=== PATIENT | female | born 1995 | race Caucasian/White ===

== ENCOUNTER 2019-09-14 17:30 | Emergency (ER) | payer OTHER ==
--- NOTE | 2019-09-14 17:50 | ERPHSYRPT ---
- History of Present Illness Time Seen by Provider: 09/14/19 17:45 Source: patient Exam Limitations: no limitations Physician History: 23 y/o white female presents with sudden onset of palpitations and rapid heart rate approx 5 minutes after smoking marijuana. never had this rxn before. denies using any other illicit drugs. Timing/Duration: today, hour(s) (1) Severity: mild Modifying Factors: Improves With: nothing Associated Symptoms: nausea, chest pain (pressure), No vomiting, No abdominal pain, No shortness of breath, No syncope Allergies/Adverse Reactions: No Known Drug Allergies Allergy (Unverified 09/14/19 17:43) Home Medications: Norethindrone-E.estradiol-Iron [Junel Fe 1 mg-20 Mcg Tablet] 1 ea PO DAILY 09/14 [History] - Review of Systems Constitutional: No Symptoms Eyes: No Symptoms Ears, Nose, & Throat: No Symptoms Respiratory: No Symptoms Cardiac: Chest Pain (pressure), Palpitations, No Syncope Abdominal/Gastrointestinal: Nausea, No Abdominal Pain, No Vomiting, No Diarrhea Genitourinary Symptoms: No Symptoms Musculoskeletal: No Symptoms Skin: No Symptoms Neurological: No Symptoms Psychological: No Symptoms Endocrine: No Symptoms Hematologic/Lymphatic: No Symptoms Immunological/Allergic: No Symptoms All Other Systems: Reviewed and Negative - Past Medical History Pertinent Past Medical History: Yes Neurological History: No Pertinent History ENT History: No Pertinent History Cardiac History: No Pertinent History Respiratory History: No Pertinent History Endocrine Medical History: No Pertinent History Musculoskeletal History: No Pertinent History GI Medical History: No Pertinent History History: No Pertinent History Psycho-Social History: No Pertinent History Female Reproductive Disorders: No Pertinent History - Past Surgical History Neuro Surgical History: No Pertinent History Cardiac: No Pertinent History Respiratory: No Pertinent History Gastrointestinal: No Pertinent History Genitourinary: No Pertinent History Musculoskeletal: No Pertinent History Female Surgical History: No Pertinent History - Nursing Vital Signs Nursing Vital Signs: Initial Vital Signs Temperature 97.3 F 09/14/19 17:36 Pulse Rate 130 H 09/14/19 17:36 Respiratory Rate 18 09/14/19 17:36 Blood Pressure 127/76 09/14/19 17:36 O2 Sat by Pulse Oximetry 100 09/14/19 17:36 Pain Scale Pain Intensity 0 - Physical Exam General Appearance: mild distress, alert, anxiety Eye Exam: PERRL/EOMI, eyes nml inspection Ears, Nose, Throat Exam: normal ENT inspection, moist mucous membranes Neck Exam: normal inspection, non-tender, supple, full range of motion Respiratory Exam: normal breath sounds, lungs clear, airway intact, No chest tenderness, No respiratory distress Cardiovascular Exam: normal peripheral pulses, tachycardia Gastrointestinal/Abdomen Exam: soft, normal bowel sounds, No tenderness Pelvic Exam: not done Rectal Exam: not done Back Exam: normal inspection, normal range of motion, No CVA tenderness, No vertebral tenderness Extremity Exam: normal inspection, normal range of motion, pelvis stable Neurologic Exam: alert, oriented x 3, cooperative, soft iron inspector II-XII nml as tested Skin Exam: normal color, warm, dry Lymphatic Exam: No adenopathy SpO2 Interpretation: normal O2 Delivery: Room Air - Course Nursing assessment & vital signs reviewed: Yes EKG Interpreted by Me: RATE ([id number]), Sinus Tach, NORMAL AXIS, NORMAL INTERVALS, NORMAL QRS, Non-specific ST Changes, Other (no comparison ekg) Ordered Tests: Active Orders 24 hr Category Date Time Status EKG-ER Only STAT Care 09/14/19 17:56 Active IV Insertion STAT Care 09/14/19 17:56 Active Pulse Oximetry (ED) STAT Care 09/14/19 17:56 Active CHEST WITH CONTRAST [CT] Stat Exams 09/14/19 19:10 Taken BMP Stat Lab 09/14/19 18:10 Completed CBC W DIFF Stat Lab 09/14/19 18:10 Completed D-DIMER QUANTITATION Stat Lab 09/14/19 18:15 Completed HCG,QUALITATIVE URINE Stat Lab 09/14/19 19:18 Completed TROPONIN Q3H Lab 09/14/19 18:00 Completed TROPONIN Q3H Lab 09/15/19 00:00 Ordered TROPONIN Q3H Lab 09/15/19 03:00 Ordered TROPONIN Q3H Lab 09/15/19 06:00 Ordered UA W/RFX UR CULTURE Stat Lab 09/14/19 19:28 Completed Urine Triage Profile Stat Lab 09/14/19 19:28 Completed Medication Summary Discontinued Medications Generic Name Dose Route Start Last Admin Trade Name Freq PRN Reason Stop Dose Admin Sodium Chloride 1,000 mls @ 999 mls/hr 09/14/19 18:55 09/14/19 18:59 Sodium Chloride 0.9% 1000 Ml IV 09/14/19 19:55 999 mls/hr .Q1H1M STA Administration Sodium Chloride Confirm 09/14/19 18:57 Sodium Chloride 0.9% 1000 Ml Administered 09/14/19 18:58 Dose 1,000 mls @ ud .ROUTE .STK-MED ONE Lorazepam 0.5 mg 09/14/19 18:24 09/14/19 18:31 Ativan 2 Mg/1 Ml Vial IV 09/14/19 18:25 0.5 mg STAT ONE Administration Lorazepam Confirm 09/14/19 18:27 Ativan 2 Mg/1 Ml Vial Administered 09/14/19 18:28 Dose 2 mg .ROUTE .STK-MED ONE Lab/Rad Data: Laboratory Result Diagrams 09/14/19 18:10 09/14/19 18:10 Laboratory Results 09/14/19 09/14/19 09/14/19 Range/Units 19:28 19:28 19:18 WBC (4.0-10.5) K/mm3 RBC (4.1-5.4) M/mm3 Hgb (12.0-16.0) gm/dl Hct (35-47) % MCV (78-100) fl MCH (26-32) pg MCHC (32-36) g/dl RDW (11.5-14.0) % Plt Count (150-450) K/mm3 MPV (6-9.5) fl Gran % (36.0-66.0) % Eos # (Auto) (0-0.5) Absolute Lymphs (auto) (1.0-4.6) Absolute Monos (auto) (0.0-1.3) Lymphocytes % (24.0-44.0) % Monocytes % (0.0-12.0) % Eosinophils % (0.00-5.0) % Basophils % (0.0-0.4) % Absolute Granulocytes (1.4-6.9) Basophils # (0-0.4) D-Dimer (215-500) ng/mL Sodium (137-145) mmol/L Potassium (3.5-5.1) mmol/L Chloride (98-107) mmol/L Carbon Dioxide (22-30) mmol/L Anion Gap (5-15) MEQ/L BUN (7-17) mg/dL Creatinine (0.52-1.04) mg/dL Estimated GFR ML/MIN Glucose (74-106) mg/dL Calcium (8.4-10.2) mg/dL Troponin I (0.000-0.034) ng/mL Urine Color YELLOW (YELLOW) Urine Appearance CLEAR (CLEAR) Urine pH 6.0 (5-6) Ur Specific Mcgrath 1.013 (1.005-1.025) Urine Protein NEGATIVE (Negative) Urine Ketones NEGATIVE (NEGATIVE) Urine Blood SMALL (0-5) Mk/ul Urine Nitrite NEGATIVE (NEGATIVE) Urine Bilirubin NEGATIVE (NEGATIVE) Urine Urobilinogen NEGATIVE (0-1) mg/dL Ur Leukocyte Esterase NEGATIVE (NEGATIVE) Urine WBC (Auto) 3-5 (0-5) /HPF Urine RBC (Auto) 0-2 (0-2) /HPF U Epithel Cells (Auto) NONE (FEW) /HPF Urine Bacteria (Auto) NONE SEEN (NEGATIVE) /HPF Urine Mucus (Auto) SLIGHT (NEGATIVE) /HPF Urine Culture Reflexed NO (NO) Urine Glucose NEGATIVE (NEGATIVE) mg/dL Urine HCG, Qual NEGATIVE (Negative) Urine Opiates Level NEGATIVE (NEGATIVE) Ur Methadone NEGATIVE (NEGATIVE) Urine Barbiturates NEGATIVE (NEGATIVE) Ur Phencyclidine (PCP) NEGATIVE (NEGATIVE) Urine Amphetamine NEGATIVE (NEGATIVE) U Benzodiazepine Level NEGATIVE (NEGATIVE) Urine Cocaine NEGATIVE (NEGATIVE) Urine Marijuana (THC) NEGATIVE (NEGATIVE) 09/14/19 09/14/19 09/14/19 Range/Units 18:15 18:10 18:10 WBC 9.8 (4.0-10.5) K/mm3 RBC 4.10 (4.1-5.4) M/mm3 Hgb 12.9 (12.0-16.0) gm/dl Hct 38.0 (35-47) % MCV 92.7 (78-100) fl MCH 31.5 (26-32) pg MCHC 33.9 (32-36) g/dl RDW 12.3 (11.5-14.0) % Plt Count 301 (150-450) K/mm3 MPV 11.7 H (6-9.5) fl Gran % 46.8 (36.0-66.0) % Eos # (Auto) 0.07 (0-0.5) Absolute Lymphs (auto) 4.27 (1.0-4.6) Absolute Monos (auto) 0.84 (0.0-1.3) Lymphocytes % 43.8 (24.0-44.0) % Monocytes % 8.6 (0.0-12.0) % Eosinophils % 0.7 (0.00-5.0) % Basophils % 0.1 (0.0-0.4) % Absolute Granulocytes 4.56 (1.4-6.9) Basophils # 0.01 (0-0.4) D-Dimer 602 H* (215-500) ng/mL Sodium 143 (137-145) mmol/L Potassium 3.9 (3.5-5.1) mmol/L Chloride 108 H (98-107) mmol/L Carbon Dioxide 24 (22-30) mmol/L Anion Gap 15.6 H (5-15) MEQ/L BUN 15 (7-17) mg/dL Creatinine 0.56 (0.52-1.04) mg/dL Estimated GFR > 60.0 ML/MIN Glucose 108 H (74-106) mg/dL Calcium 10.0 (8.4-10.2) mg/dL Troponin I (0.000-0.034) ng/mL Urine Color (YELLOW) Urine Appearance (CLEAR) Urine pH (5-6) Ur Specific Mcgrath (1.005-1.025) Urine Protein (Negative) Urine Ketones (NEGATIVE) Urine Blood (0-5) Mk/ul Urine Nitrite (NEGATIVE) Urine Bilirubin (NEGATIVE) Urine Urobilinogen (0-1) mg/dL Ur Leukocyte Esterase (NEGATIVE) Urine WBC (Auto) (0-5) /HPF Urine RBC (Auto) (0-2) /HPF U Epithel Cells (Auto) (FEW) /HPF Urine Bacteria (Auto) (NEGATIVE) /HPF Urine Mucus (Auto) (NEGATIVE) /HPF Urine Culture Reflexed (NO) Urine Glucose (NEGATIVE) mg/dL Urine HCG, Qual (Negative) Urine Opiates Level (NEGATIVE) Ur Methadone (NEGATIVE) Urine Barbiturates (NEGATIVE) Ur Phencyclidine (PCP) (NEGATIVE) Urine Amphetamine (NEGATIVE) U Benzodiazepine Level (NEGATIVE) Urine Cocaine (NEGATIVE) Urine Marijuana (THC) (NEGATIVE) 09/14/19 Range/Units 18:00 WBC (4.0-10.5) K/mm3 RBC (4.1-5.4) M/mm3 Hgb (12.0-16.0) gm/dl Hct (35-47) % MCV (78-100) fl MCH (26-32) pg MCHC (32-36) g/dl RDW (11.5-14.0) % Plt Count (150-450) K/mm3 MPV (6-9.5) fl Gran % (36.0-66.0) % Eos # (Auto) (0-0.5) Absolute Lymphs (auto) (1.0-4.6) Absolute Monos (auto) (0.0-1.3) Lymphocytes % (24.0-44.0) % Monocytes % (0.0-12.0) % Eosinophils % (0.00-5.0) % Basophils % (0.0-0.4) % Absolute Granulocytes (1.4-6.9) Basophils # (0-0.4) D-Dimer (215-500) ng/mL Sodium (137-145) mmol/L Potassium (3.5-5.1) mmol/L Chloride (98-107) mmol/L Carbon Dioxide (22-30) mmol/L Anion Gap (5-15) MEQ/L BUN (7-17) mg/dL Creatinine (0.52-1.04) mg/dL Estimated GFR ML/MIN Glucose (74-106) mg/dL Calcium (8.4-10.2) mg/dL Troponin I < 0.012 (0.000-0.034) ng/mL Urine Color (YELLOW) Urine Appearance (CLEAR) Urine pH (5-6) Ur Specific Mcgrath (1.005-1.025) Urine Protein (Negative) Urine Ketones (NEGATIVE) Urine Blood (0-5) Mk/ul Urine Nitrite (NEGATIVE) Urine Bilirubin (NEGATIVE) Urine Urobilinogen (0-1) mg/dL Ur Leukocyte Esterase (NEGATIVE) Urine WBC (Auto) (0-5) /HPF Urine RBC (Auto) (0-2) /HPF U Epithel Cells (Auto) (FEW) /HPF Urine Bacteria (Auto) (NEGATIVE) /HPF Urine Mucus (Auto) (NEGATIVE) /HPF Urine Culture Reflexed (NO) Urine Glucose (NEGATIVE) mg/dL Urine HCG, Qual (Negative) Urine Opiates Level (NEGATIVE) Ur Methadone (NEGATIVE) Urine Barbiturates (NEGATIVE) Ur Phencyclidine (PCP) (NEGATIVE) Urine Amphetamine (NEGATIVE) U Benzodiazepine Level (NEGATIVE) Urine Cocaine (NEGATIVE) Urine Marijuana (THC) (NEGATIVE) - Progress Progress: improved Progress Note: 09/14/19 21:12 cta chest-no acute process. no pulm emboli 09/14/19 21:13 pt states she is feeling much better and wants to go home Counseled pt/family regarding: lab results, diagnosis, need for follow-up, rad results - Departure Departure Disposition: Home Clinical Impression: Chest pressure Condition: Stable Critical Care Time: No Referrals: RANDALL HARRELL [Primary Care Provider] - Additional Instructions: drink plenty of fluid. follow up with primary doctor for further management
[2019-09-14] MEDS ORDERED: Ativan 2 MG/1 ML VIAL IV ONE (18:24)
[2019-09-14] MEDS ORDERED: Ativan 2 MG/1 ML VIAL ONE (18:27)
[2019-09-14 18:51] LABS: ANION GAP 15.6 MEQ/L (5-15); BLOOD UREA NITROGEN 15 mg/dL (7-17); CHLORIDE 108 mmol/L (98-107); Carbon Dioxide 24 mmol/L (22-30); Creatinine 1 0.56 mg/dL (0.52-1.04); Glucose 108 mg/dL (74-106); Potassium 3.9 mmol/L (3.5-5.1); SODIUM 143 mmol/L (137-145)
[2019-09-14] MEDS ORDERED: Sodium Chloride 0.9% 1000 ML 1,000 ML IV STA (18:55)
[2019-09-14] MEDS ORDERED: Sodium Chloride 0.9% 1000 ML 1,000 ML ONE (18:57)
[2019-09-14 19:02] LABS: Absolute Neutrophil Ct (ANC) 4.56 (1.4-6.9); BASOPHIL % 0.1 % (0.0-0.4); Basophil (Absolute #) 0.01 (0-0.4); Eosinophil % 0.7 % (0.00-5.0); Eosinophil (Absolute #) 0.07 (0-0.5); Hemoglobin 12.9 gm/dl (12.0-16.0); Lymphocyte (Absolute #) 4.27 (1.0-4.6); Lymphocytes % 43.8 % (24.0-44.0); Mean Cell Volume 92.7 fl (78-100); Mean Corpuscular Hemoglobin 31.5 pg (26-32); Mean Corpuscular Hgb Concent. 33.9 g/dl (32-36); Mean Platelet Volume 11.7 fl (6-9.5); Monocyte (Absolute #) 0.84 (0.0-1.3); Monocytes % 8.6 % (0.0-12.0); Neutrophil % 46.8 % (36.0-66.0); Platelet Count 301 K/mm3 (150-450); Red Cell Distribution Width 12.3 % (11.5-14.0); White Blood Count 9.8 K/mm3 (4.0-10.5)
[2019-09-14 19:31] LABS: Appearance CLEAR (CLEAR); Bilirubin NEGATIVE (NEGATIVE); Blood SMALL Ery/ul (0-5); Glucose NEGATIVE (NEGATIVE); Ketones NEGATIVE (NEGATIVE); Leukocyte Esterase NEGATIVE (NEGATIVE); Mucus SLIGHT /HPF (NEGATIVE); Nitrite NEGATIVE (NEGATIVE); Protein,Urine Dip NEGATIVE (Negative); RBC 0-2 /HPF (0-2); Specific Gravity 1.013 (1.005-1.025); Urobilinogen NEGATIVE mg/dL (0-1)
[2019-09-14 19:32] LABS: Bacteria NONE SEEN /HPF (NEGATIVE)
[2019-09-14 19:44] LABS: Amphetamine,Urine NEGATIVE (NEGATIVE); Barbiturate,Urine NEGATIVE (NEGATIVE); Benzodiazepine,Urine NEGATIVE (NEGATIVE); Cocaine,Urine NEGATIVE (NEGATIVE); Methadone,Urine NEGATIVE (NEGATIVE); Opiate,Urine NEGATIVE (NEGATIVE); PCP,Urine NEGATIVE (NEGATIVE); THC,Urine NEGATIVE (NEGATIVE)
[2019-09-14 21:06] VITALS: BP 106/67; PULSE 97; O2SAT 99
--- NOTE | 2019-09-14 22:25 | XRAY ---
Indication: Chest pain, palpitations, tachycardia. Multiple contiguous axial images obtained through the chest using 80 cc Isovue 370 contrast and PE protocol. Comparison: None There is good opacification of the pulmonary arteries to include the lobar and segmental branches. No filling defect or pulmonary embolus. Heart is not enlarged. Aorta is normal in course and caliber. No pathologic mediastinal/hilar lymphadenopathy. Lungs demonstrates minimal bilateral dependent atelectasis. No suspicious pulmonary mass, infiltrate, or effusion. Bony thorax intact. Limited upper abdomen demonstrates mild fatty liver and previous cholecystectomy. Impression: 1. Negative pulmonary embolus. No acute cardiopulmonary abnormalities. 2. Fatty liver. Comment: Preliminary interpretation was made by [facility]. No critical discrepancy. CTDI 26.49
== END 2019-09-14 21:36 | disposition home or self-care (01) ==
LOC: ED 17:30
DX: R07.89 Other chest pain (principal)
CPT/HCPCS: 36000; 36415; 71260; 80048; 80307; 81001; 84484; 84703; 85025; 85379; 93005; 94760; 96374; 99284; J2060

== ENCOUNTER 2020-08-21 02:16 | Emergency (ER) | payer OTHER ==
--- NOTE | 2020-08-21 02:50 | ERPHSYRPT ---
- History of Present Illness Time Seen by Provider: 08/21/20 02:30 Historian: patient, family Exam Limitations: no limitations Patient Subjective Stated Complaint: pt c/o chest pain off and on x6 days, palpitations tonight Triage Nursing Assessment: pt c/o chest pain to lt upper chest off an on x6 days, having heart palpitations and racing tonight. Pt denies pain radiating to back, neck, jaw or arms. Lungs clear, heart tones reg, abd soft with active bs x4 quad, nontender. Pt denies any n, v, d. Physician History: This is a 24-year-old white female who has had intermittent chest pain on the left side anteriorly without radiation and describes as intermittent sharp pain with associated palpitations for 5 to 6 days. She is never had anything like this before. Patient denies illicit drug use. She denies any change in any caffeine or nicotine intake. She denies shortness of breath. She has no abdominal pain. She is had no nausea vomiting or diarrhea. This morning, patient was having trouble sleeping because of the strong palpitations she was feeling and the pain as described above. She is not under any unusual or different level of stress. Patient denies fever and she denies cough. Timing/Duration: day(s) (5-6) Activities at Onset: none Quality: sharpness, stabbing Location: other (Left anterior chest) Chest Pain Radiation: no radiation Severity of Pain-Max: moderate Severity of Pain-Current: mild Modifying Factors: Improves With: nothing Associated Symptoms: denies symptoms, No nausea, No vomiting, No shortness of breath Prior Chest Pain/Cardiac Workup: no prior chest pain Aspirin Treatment Today: 325 mg x 1, provided by ED Allergies/Adverse Reactions: No Known Drug Allergies Allergy (Verified 08/21/20 02:33) Home Medications: Norethindrone-E.estradiol-Iron [Junel Fe 1 mg-20 Mcg Tablet] 1 ea PO DAILY 09/14/19 [History] Hx Tetanus, Diphtheria Vaccination/Date Given: Yes Hx Influenza Vaccination/Date Given: No Hx Pneumococcal Vaccination/Date Given: No Immunizations Up to Date: Yes Travel Risk - International Travel Have you traveled outside of the country in past 3 weeks: No - Coronavirus Screening Are you exhibiting any of the following symptoms?: No Close contact with a COVID-19 positive Pt in past 14-21 Days: No - Review of Systems Constitutional: No Symptoms Eyes: No Symptoms Ears, Nose, & Throat: No Symptoms Respiratory: No Symptoms Cardiac: Chest Pain Abdominal/Gastrointestinal: No Symptoms Genitourinary Symptoms: No Symptoms Musculoskeletal: No Symptoms Skin: No Symptoms Neurological: No Symptoms Psychological: No Symptoms Endocrine: No Symptoms Hematologic/Lymphatic: No Symptoms Immunological/Allergic: No Symptoms All Other Systems: Reviewed and Negative - Past Medical History Pertinent Past Medical History: Yes Neurological History: No Pertinent History ENT History: No Pertinent History Cardiac History: No Pertinent History Respiratory History: No Pertinent History Endocrine Medical History: No Pertinent History Musculoskeletal History: No Pertinent History GI Medical History: Gallbladder Disease History: No Pertinent History Psycho-Social History: No Pertinent History Female Reproductive Disorders: No Pertinent History - Past Surgical History Past Surgical History: Yes Neuro Surgical History: No Pertinent History Cardiac: No Pertinent History Respiratory: No Pertinent History Gastrointestinal: Cholecystectomy Genitourinary: No Pertinent History Musculoskeletal: No Pertinent History Female Surgical History: No Pertinent History - Social History Smoking Status: Current every day smoker How long have you smoked: 8 yrs Exposure to second hand smoke: Yes Drug Use: none Patient Lives Alone: No - Female History Hx Last Menstrual Period: Jul, 2020 Hx Now: (unknown) - Nursing Vital Signs Nursing Vital Signs: Initial Vital Signs Temperature 98.0 F 08/21/20 02:20 Pulse Rate 82 08/21/20 02:20 Respiratory Rate 18 08/21/20 02:20 Blood Pressure 112/77 08/21/20 02:20 O2 Sat by Pulse Oximetry 100 08/21/20 02:20 Pain Scale Pain Intensity 4 - Physical Exam General Appearance: no apparent distress, alert, anxiety Eye Exam: PERRL/EOMI, eyes nml inspection Ears, Nose, Throat Exam: normal ENT inspection, moist mucous membranes Neck Exam: normal inspection, non-tender, supple, full range of motion Respiratory Exam: normal breath sounds, chest tenderness, lungs clear, airway intact, No respiratory distress Cardiovascular Exam: regular rate/rhythm, normal heart sounds, normal peripheral pulses Gastrointestinal/Abdomen Exam: soft, normal bowel sounds, No tenderness Pelvic Exam: not done Rectal Exam: not done Back Exam: normal inspection, normal range of motion, No CVA tenderness, No vertebral tenderness Extremity Exam: normal inspection, normal range of motion, pelvis stable Neurologic Exam: alert, oriented x 3, cooperative, video game engineer II-XII nml as tested, normal mood/affect, nml cerebellar function, nml station & gait, sensation nml Skin Exam: normal color, warm, dry Lymphatic Exam: No adenopathy SpO2 Interpretation: normal SpO2: 100 O2 Delivery: Room Air - Course Nursing assessment & vital signs reviewed: Yes EKG Interpreted by Me: RATE (76), Sinus Rhythm, NORMAL AXIS, NORMAL INTERVALS, NORMAL QRS, Other (The current EKG is improved when compared to the EKG dated 09/14/2019. There is now resolution of any nonspecific ST segment changes.) Ordered Tests: Active Orders 24 hr Category Date Time Status EKG-ER Only STAT Care 08/21/20 02:52 Active IV Insertion STAT Care 08/21/20 02:52 Active Pulse Oximetry (ED) STAT Care 08/21/20 02:52 Active CBC W DIFF Stat Lab 08/21/20 02:54 Completed CMP Stat Lab 08/21/20 02:54 Completed D-DIMER QUANTITATIVE Stat Lab 08/21/20 02:54 Completed NT PRO BNP Stat Lab 08/21/20 02:54 Completed PROTIME WITH INR Stat Lab 08/21/20 02:54 Completed TROPONIN Q3H Lab 08/21/20 02:54 Completed TROPONIN Q3H Lab 08/21/20 06:00 Ordered TROPONIN Q3H Lab 08/21/20 09:00 Ordered TROPONIN Q3H Lab 08/21/20 12:00 Ordered TROPONIN Q3H Lab 08/21/20 15:00 Ordered Medication Summary Discontinued Medications Generic Name Dose Route Start Last Admin Trade Name Freq PRN Reason Stop Dose Admin Aspirin 324 mg 08/21/20 02:52 08/21/20 02:54 Baby Aspirin 81 Mg Chew PO 08/21/20 02:53 324 mg STAT ONE Administration Lab/Rad Data: Laboratory Result Diagrams 08/21/20 02:54 08/21/20 02:54 Laboratory Results 08/21/20 08/21/20 08/21/20 Range/Units 02:54 02:54 02:54 WBC (4.0-10.5) K/mm3 RBC (4.1-5.4) M/mm3 Hgb (12.0-16.0) gm/dl Hct (35-47) % MCV (78-100) fl MCH (26-32) pg MCHC (32-36) g/dl RDW (11.5-14.0) % Plt Count (150-450) K/mm3 MPV (7.5-11.0) fl Gran % (36.0-66.0) % Eos # (Auto) (0-0.5) Absolute Lymphs (auto) (1.0-4.6) Absolute Monos (auto) (0.0-1.3) Lymphocytes % (24.0-44.0) % Monocytes % (0.0-12.0) % Eosinophils % (0.00-5.0) % Basophils % (0.0-0.4) % Absolute Granulocytes (1.4-6.9) Basophils # (0-0.4) PT 12.6 H (9.95-12.35) SECONDS INR 1.11 (0.8-3.0) D-Dimer 382 (215-500) ng/mL Sodium 136 L (137-145) mmol/L Potassium 4.6 (3.5-5.1) mmol/L Chloride 107 (98-107) mmol/L Carbon Dioxide 21 L (22-30) mmol/L Anion Gap 12.8 (5-15) MEQ/L BUN 14 (7-17) mg/dL Creatinine 0.57 (0.52-1.04) mg/dL Estimated GFR > 60.0 ML/MIN Glucose 100 (74-106) mg/dL Calcium 9.3 (8.4-10.2) mg/dL Total Bilirubin 0.50 (0.2-1.3) mg/dL AST 43 H (14-36) U/L ALT 20 (0-35) U/L Alkaline Phosphatase 51 (38-126) U/L Troponin I < 0.012 (0.000-0.034) ng/mL NT-Pro-B Natriuret Pep 26.7 (0-450) pg/mL Serum Total Protein 7.9 (6.3-8.2) g/dL Albumin 4.5 (3.5-5.0) g/dL 08/21/20 Range/Units 02:54 WBC 11.8 H (4.0-10.5) K/mm3 RBC 4.18 (4.1-5.4) M/mm3 Hgb 13.3 (12.0-16.0) gm/dl Hct 38.3 (35-47) % MCV 91.6 (78-100) fl MCH 31.8 (26-32) pg MCHC 34.7 (32-36) g/dl RDW 12.2 (11.5-14.0) % Plt Count 277 (150-450) K/mm3 MPV 11.7 H (7.5-11.0) fl Gran % 55.7 (36.0-66.0) % Eos # (Auto) 0.10 (0-0.5) Absolute Lymphs (auto) 4.15 (1.0-4.6) Absolute Monos (auto) 0.96 (0.0-1.3) Lymphocytes % 35.2 (24.0-44.0) % Monocytes % 8.1 (0.0-12.0) % Eosinophils % 0.8 (0.00-5.0) % Basophils % 0.2 (0.0-0.4) % Absolute Granulocytes 6.55 (1.4-6.9) Basophils # 0.02 (0-0.4) PT (9.95-12.35) SECONDS INR (0.8-3.0) D-Dimer (215-500) ng/mL Sodium (137-145) mmol/L Potassium (3.5-5.1) mmol/L Chloride (98-107) mmol/L Carbon Dioxide (22-30) mmol/L Anion Gap (5-15) MEQ/L BUN (7-17) mg/dL Creatinine (0.52-1.04) mg/dL Estimated GFR ML/MIN Glucose (74-106) mg/dL Calcium (8.4-10.2) mg/dL Total Bilirubin (0.2-1.3) mg/dL AST (14-36) U/L ALT (0-35) U/L Alkaline Phosphatase (38-126) U/L Troponin I (0.000-0.034) ng/mL NT-Pro-B Natriuret Pep (0-450) pg/mL Serum Total Protein (6.3-8.2) g/dL Albumin (3.5-5.0) g/dL - Progress Progress: improved, re-examined Air Movement: good Blood Culture(s) Obtained: No Antibiotics given: No Counseled pt/family regarding: lab results, diagnosis, need for follow-up - Departure Departure Disposition: Home Clinical Impression: Non-cardiac chest pain Condition: Stable Critical Care Time: No Referrals: RANDALL HARRELL [Primary Care Provider] - Additional Instructions: Follow-up with your primary care provider for further management. Call them today to make arrangements for follow-up appointment.
[2020-08-21] MEDS ORDERED: BABY ASPIRIN 81 MG CHEW PO ONE (02:52)
[2020-08-21 02:59] LABS: INR 1.11 (0.8-3.0); PROTIME 12.6 SECONDS (9.95-12.35)
[2020-08-21 03:12] LABS: ALBUMIN 4.5 g/dL (3.5-5.0); ALKALINE PHOSPHATASE 51 U/L (38-126); ANION GAP 12.8 MEQ/L (5-15); BLOOD UREA NITROGEN 14 mg/dL (7-17); CHLORIDE 107 mmol/L (98-107); Calcium 9.3 mg/dL (8.4-10.2); Carbon Dioxide 21 mmol/L (22-30); Creatinine 1 0.57 mg/dL (0.52-1.04); EST GLOMERULAR FILTRATION RATE > 60.0 ML/MIN; Glucose 100 mg/dL (74-106); NT PRO BNP 26.7 pg/mL (0-450); Potassium 4.6 mmol/L (3.5-5.1); SGOT/AST 43 U/L (14-36); SGPT/ALT 20 U/L (0-35); SODIUM 136 mmol/L (137-145); Total Protein 7.9 g/dL (6.3-8.2)
[2020-08-21 03:17] LABS: Absolute Neutrophil Ct (ANC) 6.55 (1.4-6.9); BASOPHIL % 0.2 % (0.0-0.4); Basophil (Absolute #) 0.02 (0-0.4); Eosinophil % 0.8 % (0.00-5.0); Hematocrit 38.3 % (35-47); Hemoglobin 13.3 gm/dl (12.0-16.0); Lymphocyte (Absolute #) 4.15 (1.0-4.6); Lymphocytes % 35.2 % (24.0-44.0); Mean Cell Volume 91.6 fl (78-100); Mean Corpuscular Hemoglobin 31.8 pg (26-32); Mean Corpuscular Hgb Concent. 34.7 g/dl (32-36); Mean Platelet Volume 11.7 fl (7.5-11.0); Monocyte (Absolute #) 0.96 (0.0-1.3); Monocytes % 8.1 % (0.0-12.0); Neutrophil % 55.7 % (36.0-66.0); Platelet Count 277 K/mm3 (150-450); Red Blood Count 4.18 M/mm3 (4.1-5.4); Red Cell Distribution Width 12.2 % (11.5-14.0); White Blood Count 11.8 K/mm3 (4.0-10.5)
[2020-08-21 03:28] VITALS: BP 99/59; PULSE 82
[2020-08-21 03:39] VITALS: O2SAT 100
== END 2020-08-21 03:52 | disposition home or self-care (01) ==
LOC: ED 02:16
DX: R07.89 Other chest pain (principal)
CPT/HCPCS: 36000; 36415; 80053; 83880; 84484; 85025; 85379; 85610; 93005; 94760; 99284; A9270-GY

== ENCOUNTER 2021-08-17 11:45 | Observation (INO) | payer OTHER ==
--- NOTE | 2021-08-17 12:23 | XRAY ---
Indication: Decreased movements. Ultrasound biophysical profile study performed. There is a single viable intrauterine with heart rate 157 bpm. Four-quadrant JAMARCUS is 15.9 cm, largest pocket 6.9 cm. 2 points given for breathing, movements, tone, and qualitative amniotic fluid volume. Impression: Total biophysical profile score is 8 out of 8.
[2021-08-17 13:04] VITALS: BP 130/82; PULSE 85; O2SAT 97
== END 2021-08-17 13:15 | disposition home or self-care (01) ==
LOC: OB 11:45
PROVIDERS: ADMIT Family Medicine; ATTEND Family Medicine
DX: Z34.03 Encounter for supervision of normal first pregnancy, third trimester (principal); Z3A.33 33 weeks gestation of pregnancy
CPT/HCPCS: 59025; 76819; G0378

== ENCOUNTER 2021-08-27 15:39 | Observation (INO) | payer OTHER ==
[2021-08-27 16:23] VITALS: BP 135/75; PULSE 78; O2SAT 98
[2021-08-27 17:21] LABS: Hematocrit 36.3 % (35-47); Hemoglobin 12.2 gm/dl (12.0-16.0); Mean Cell Volume 92.8 fl (78-100); Mean Corpuscular Hemoglobin 31.2 pg (26-32); Mean Corpuscular Hgb Concent. 33.6 g/dl (32-36); Mean Platelet Volume 10.9 fl (7.5-11.0); Platelet Count 306 K/mm3 (150-450); Red Blood Count 3.91 M/mm3 (4.1-5.4); Red Cell Distribution Width 12.6 % (11.5-14.0); White Blood Count 10.6 K/mm3 (4.0-10.5)
--- NOTE | 2021-08-27 17:24 | XRAY ---
Indication: heart rate deceleration. Ultrasound biophysical profile study performed. Comparison: August 17, 2021. Again single intrauterine with heart rate 141 BPM. Four-quadrant JAMARCUS is 13.2 cm, largest pocket 7.5 cm. 2 points given for breathing, movements, tone, and qualitative amniotic fluid volume. Impression: Total biophysical profile score is again 8 out of 8.
[2021-08-27 18:26] LABS: ALBUMIN 3.9 g/dL (3.5-5.0); ALKALINE PHOSPHATASE 104 U/L (38-126); ANION GAP 12.8 MEQ/L (5-15); BLOOD UREA NITROGEN 10 mg/dL (7-17); CHLORIDE 105 mmol/L (98-107); Calcium 9.6 mg/dL (8.4-10.2); Carbon Dioxide 21 mmol/L (22-30); Creatinine 1 0.51 mg/dL (0.52-1.04); EST GLOMERULAR FILTRATION RATE > 60.0 ML/MIN; Glucose 85 mg/dL (74-106); SGOT/AST 21 U/L (14-36); SGPT/ALT 16 U/L (0-35); SODIUM 135 mmol/L (137-145)
== END 2021-08-27 19:05 | disposition home or self-care (01) ==
LOC: OB 15:39
PROVIDERS: ADMIT Family Medicine; ATTEND Family Medicine
DX: Z34.03 Encounter for supervision of normal first pregnancy, third trimester (principal); Z3A.33 33 weeks gestation of pregnancy
CPT/HCPCS: 36415; 76819; 80053; 85027; G0378

== ENCOUNTER 2021-09-07 11:48 | Observation (INO) | payer OTHER ==
[2021-09-07 12:40] LABS: Absolute Neutrophil Ct (ANC) 6.48 (1.4-6.9); BASOPHIL % 0.1 % (0.0-0.4); Basophil (Absolute #) 0.01 (0-0.4); Eosinophil % 0.4 % (0.00-5.0); Eosinophil (Absolute #) 0.04 (0-0.5); Hematocrit 31.8 % (35-47); Hemoglobin 10.5 gm/dl (12.0-16.0); Lymphocyte (Absolute #) 2.02 (1.0-4.6); Lymphocytes % 22.2 % (24.0-44.0); Mean Cell Volume 91.9 fl (78-100); Mean Corpuscular Hemoglobin 30.3 pg (26-32); Mean Platelet Volume 11.5 fl (7.5-11.0); Monocyte (Absolute #) 0.56 (0.0-1.3); Monocytes % 6.1 % (0.0-12.0); Neutrophil % 71.2 % (36.0-66.0); Platelet Count 269 K/mm3 (150-450); Red Blood Count 3.46 M/mm3 (4.1-5.4); Red Cell Distribution Width 12.7 % (11.5-14.0); White Blood Count 9.1 K/mm3 (4.0-10.5)
[2021-09-07 12:47] LABS: ALKALINE PHOSPHATASE 93 U/L (38-126); BLOOD UREA NITROGEN 8 mg/dL (7-17); CHLORIDE 109 mmol/L (98-107); Calcium 8.8 mg/dL (8.4-10.2); Carbon Dioxide 20 mmol/L (22-30); Creatinine 1 0.48 mg/dL (0.52-1.04); EST GLOMERULAR FILTRATION RATE > 60.0 ML/MIN; Glucose 73 mg/dL (74-106); Potassium 4.2 mmol/L (3.5-5.1); SGOT/AST 20 U/L (14-36); SGPT/ALT 12 U/L (0-35); SODIUM 135 mmol/L (137-145); Total Protein 5.7 g/dL (6.3-8.2)
--- NOTE | 2021-09-07 13:43 | XRAY ---
Indication: well-being due to mother's blood pressure. 2-dimensional OB ultrasound performed. Comparison: August 04, 2021 There is again a single intrauterine in breech presentation. heart rate 137 BPM. anatomy previously documented. Again posterior placenta without abruption/previa. BPD measures 8.90 cm corresponding to 33 weeks 3 days. HC measures 32.06 cm corresponding to 32 weeks 6 days. AC measures 32.64 cm corresponding to 32 weeks 3 days. FL measures 6.95 cm corresponding to 30 weeks 6 days. Estimated weight 6 lbs. 6 oz., +/-15 ounces. Approximately 47 percentile. JAMARCUS is 14.3 cm. Impression: Again single viable intrauterine with mean gestational age 36 weeks 1 day. Normal progression of . No new/acute findings.
== END 2021-09-07 15:33 | disposition home or self-care (01) ==
LOC: OB 11:48
PROVIDERS: ADMIT Family Medicine; ATTEND Family Medicine
DX: Z34.03 Encounter for supervision of normal first pregnancy, third trimester (principal); Z3A.36 36 weeks gestation of pregnancy
CPT/HCPCS: 36415; 76816; 80053; 85025; G0378

== ENCOUNTER 2021-09-12 01:07 | Observation (INO) | payer OTHER ==
[2021-09-12 03:46] LABS: Appearance SLIGHTLY CLOUDY (CLEAR); Bilirubin NEGATIVE (NEGATIVE); Blood SMALL Ery/ul (0-5); Epithelial Cells RARE /HPF (FEW); Glucose NEGATIVE (NEGATIVE); Ketones NEGATIVE (NEGATIVE); Leukocyte Esterase LARGE (NEGATIVE); Mucus SLIGHT /HPF (NEGATIVE); Nitrite NEGATIVE (NEGATIVE); Protein,Urine Dip NEGATIVE (Negative); Specific Gravity 1.018 (1.005-1.025); Urobilinogen NEGATIVE mg/dL (0-1); WBC 51-100 /HPF (0-5)
[2021-09-12 03:51] LABS: Amphetamine,Urine NEGATIVE (NEGATIVE); Barbiturate,Urine NEGATIVE (NEGATIVE); Benzodiazepine,Urine NEGATIVE (NEGATIVE); Cocaine,Urine NEGATIVE (NEGATIVE); Methadone,Urine NEGATIVE (NEGATIVE); Opiate,Urine NEGATIVE (NEGATIVE); PCP,Urine NEGATIVE (NEGATIVE); THC,Urine NEGATIVE (NEGATIVE)
== END 2021-09-12 03:50 | disposition home or self-care (01) ==
LOC: OB 01:07
PROVIDERS: ADMIT Family Medicine; ATTEND Family Medicine
DX: Z34.03 Encounter for supervision of normal first pregnancy, third trimester (principal); Z3A.38 38 weeks gestation of pregnancy
CPT/HCPCS: 80307; 81001; 87086; G0378

== ENCOUNTER 2021-09-12 09:28 | Inpatient (IN) | payer OTHER ==
[2021-09-12] MEDS ORDERED: Reglan 10 MG/2 ML IV SCH (10:30)
[2021-09-12] MEDS ORDERED: SOD CITRATE-CITRIC ACID SOLN PO SCH (10:30)
[2021-09-12] MEDS ORDERED: CEFAZOLIN 2 GM-D5W BAG** 2 GM/50 ML ML IV SCH (10:30)
[2021-09-12] MEDS ORDERED: Pepcid 20 MG VIAL IV SCH (10:30)
[2021-09-12] MEDS: Lactated Ringers 1,000 ML IV SCH ×2 (10:30→20:31)
[2021-09-12] MEDS ORDERED: OMNIPEN 2 GM ONE (10:32)
[2021-09-12] MEDS ORDERED: Sodium Chloride 100ML MINI-BAG PLUS 100 ML IV ONE (10:32)
[2021-09-12 11:04] LABS: Hematocrit 34.3 % (35-47); Hemoglobin 11.6 gm/dl (12.0-16.0); Mean Cell Volume 91.7 fl (78-100); Mean Corpuscular Hgb Concent. 33.8 g/dl (32-36); Mean Platelet Volume 11.4 fl (7.5-11.0); Platelet Count 301 K/mm3 (150-450); Red Blood Count 3.74 M/mm3 (4.1-5.4); Red Cell Distribution Width 12.9 % (11.5-14.0)
[2021-09-12 11:18] LABS: INR 0.95 (0.8-3.0); PROTIME 11.2 SECONDS (9.4-12.5)
[2021-09-12 11:21] LABS: PTT 27.4 SECONDS (25.1-36.5)
[2021-09-12] MEDS ORDERED: Zofran 4 MG/2 ML VIAL ONE (11:30)
[2021-09-12] MEDS ORDERED: Astramorph-Pf 5 MG/10 ML ONE (11:31)
[2021-09-12] MEDS ORDERED: PHENYLEPHRINE HCL ONE (11:44)
[2021-09-12 11:53] LABS: ABO TYPING A; Antibody Screen NEGATIVE (NEGATIVE); RH TYPING POSITIVE
[2021-09-12] MEDS ORDERED: Lactated Ringers 1,000 ML IV ONE ×2 (11:58→13:04)
[2021-09-12] MEDS ORDERED: Pitocin 10 UNITS/ML ONE (12:02)
[2021-09-12] MEDS ORDERED: TORAdol 30 mg Injection ONE (12:07)
[2021-09-12] MEDS ORDERED: Decadron 4 MG INJ ONE ×2 (12:07→12:17)
[2021-09-12] MEDS ORDERED: BENADRYL 50 MG/ML ONE (12:11)
[2021-09-12] MEDS ORDERED: Naropin 0.5% 30 ML VIAL ONE (12:17)
[2021-09-12] MEDS ORDERED: EPINEPHRINE 1MG/ML AMP ONE (12:17)
[2021-09-12] MEDS ORDERED: Zofran 4 MG/2 ML VIAL IV PRN (13:58)
[2021-09-12] MEDS ORDERED: Nubain 10 MG/ML IV PRN (13:58)
[2021-09-12] MEDS ORDERED: CLARITIN 10 MG PO PRN (13:58)
[2021-09-12] MEDS ORDERED: BENADRYL 50 MG/ML IV PRN (13:58)
[2021-09-12] MEDS ORDERED: HOLD NARCOTIC ANALGESICS AND SEDATIVES X24 HR MC PRN (13:58)
[2021-09-12] MEDS ORDERED: PERCOCET TABLET 5/325MG PO PRN (13:58)
[2021-09-12] MEDS ORDERED: Narcan 0.4 MG/ML IV PRN (13:58)
[2021-09-12] MEDS: Dextrose 5%-Lr IV Solution 1000 ML 1,000 ML IV SCH (14:12)
[2021-09-12] MEDS ORDERED: LANSINOH 40 GM TOP PRN (15:14)
[2021-09-12] MEDS ORDERED: Mylicon 80MG PO PRN (15:14)
[2021-09-12] MEDS: PITOCIN 30 UNITS/ LR 500 ML 30 UNITS/500 ML IV.SOLN. IV SCH (15:37)
[2021-09-12] MEDS ORDERED: Adacel Vial IM ONE (18:00)
[2021-09-12] MEDS ORDERED: FERREX 150 PO SCH (18:00)
[2021-09-12] MEDS: Colace 100 MG PO SCH (21:21)
[2021-09-13] MEDS: Dextrose 5%-Lr IV Solution 1000 ML 1,000 ML IV SCH (06:13)
[2021-09-13 06:53] LABS: Absolute Neutrophil Ct (ANC) 15.97 (1.4-6.9); BASOPHIL % 0.1 % (0.0-0.4); Basophil (Absolute #) 0.02 (0-0.4); Eosinophil % 0.1 % (0.00-5.0); Eosinophil (Absolute #) 0.01 (0-0.5); Hematocrit 28.2 % (35-47); Hemoglobin 9.2 gm/dl (12.0-16.0); Lymphocyte (Absolute #) 2.29 (1.0-4.6); Lymphocytes % 11.7 % (24.0-44.0); Mean Cell Volume 94.6 fl (78-100); Mean Corpuscular Hemoglobin 30.9 pg (26-32); Mean Corpuscular Hgb Concent. 32.6 g/dl (32-36); Mean Platelet Volume 11.5 fl (7.5-11.0); Monocytes % 6.2 % (0.0-12.0); Neutrophil % 81.9 % (36.0-66.0); Platelet Count 289 K/mm3 (150-450); Red Blood Count 2.98 M/mm3 (4.1-5.4); White Blood Count 19.5 K/mm3 (4.0-10.5)
[2021-09-13] MEDS: Colace 100 MG PO SCH ×2 (08:10→21:20)
[2021-09-13] MEDS ORDERED: NORCO 5/325 MG PO PRN (09:00)
[2021-09-13] MEDS ORDERED: Zofran 4 MG/2 ML VIAL IV PRN (09:00)
[2021-09-13] MEDS ORDERED: FERREX 150 PO SCH (10:00)
[2021-09-13] MEDS: MOTRIN 400 MG PO PRN ×2 (11:47→21:20)
[2021-09-14] MEDS: Dextrose 5%-Lr IV Solution 1000 ML 1,000 ML IV SCH ×2 (01:24→01:25)
[2021-09-14] MEDS: PITOCIN 30 UNITS/ LR 500 ML 30 UNITS/500 ML IV.SOLN. IV SCH (01:24)
[2021-09-14] MEDS: MOTRIN 400 MG PO PRN (05:19)
[2021-09-14 08:09] LABS: Absolute Neutrophil Ct (ANC) 8.68 (1.4-6.9); BASOPHIL % 0.2 % (0.0-0.4); Basophil (Absolute #) 0.02 (0-0.4); Eosinophil % 0.5 % (0.00-5.0); Eosinophil (Absolute #) 0.06 (0-0.5); Hematocrit 27.3 % (35-47); Hemoglobin 8.8 gm/dl (12.0-16.0); Lymphocyte (Absolute #) 2.66 (1.0-4.6); Lymphocytes % 21.7 % (24.0-44.0); Mean Cell Volume 96.1 fl (78-100); Mean Corpuscular Hgb Concent. 32.2 g/dl (32-36); Mean Platelet Volume 11.1 fl (7.5-11.0); Monocyte (Absolute #) 0.83 (0.0-1.3); Monocytes % 6.8 % (0.0-12.0); Neutrophil % 70.8 % (36.0-66.0); Platelet Count 271 K/mm3 (150-450); Red Blood Count 2.84 M/mm3 (4.1-5.4); Red Cell Distribution Width 13.1 % (11.5-14.0); White Blood Count 12.3 K/mm3 (4.0-10.5)
--- NOTE | 2021-09-14 08:46 | PCM.DS ---
Discharge Summary Date of Admission: 09/12/21 09:28 Admitting Physician: PUMA MCCOY Consults: Consults on Case 09/12/21 10:27 Notify Physician OF ADMISSION 09/12/21 13:58 Notify Anesthesia Provider Q12H 09/12/21 16:33 Navigation Q12H Primary Care Provider: MISHEL SÁNCHEZ KIRAN Allergies Allergies No Known Drug Allergies Allergy (Verified 09/12/21 01:30) Hospital Summary - Hospital Course Hospital Course: patient arrived at 37wks in active labor, breech presentation. had uncomplicated primary on 09/12/21, mild lochia and pain well controlled with ibuprofen . no complications or concerns. - Vitals & Intake/Output Vital Signs: Vital Signs Temperature 98.8 F 09/14/21 02:00 Pulse Rate 90 09/14/21 02:00 Respiratory Rate 18 09/14/21 02:00 Blood Pressure 121/58 09/14/21 02:00 O2 Sat by Pulse Oximetry 97 09/13/21 20:00 Intake & Output: Intake & Output 09/11/21 09/12/21 09/13/21 09/14/21 11:59 11:59 11:59 11:59 Intake Total 400 2206 Output Total 800 Balance 400 1406 Weight 109.316 kg 109.316 kg - Lab Result Diagrams: 09/14/21 07:40 Lab Results-Last 24 Hrs: Lab Results-Last 24 Hours 09/14/21 Range/Units 07:40 WBC 12.3 H (4.0-10.5) K/mm3 RBC 2.84 L (4.1-5.4) M/mm3 Hgb 8.8 L (12.0-16.0) gm/dl Hct 27.3 L (35-47) % MCV 96.1 (78-100) fl MCH 31.0 (26-32) pg MCHC 32.2 (32-36) g/dl RDW 13.1 (11.5-14.0) % Plt Count 271 (150-450) K/mm3 MPV 11.1 H (7.5-11.0) fl Gran % 70.8 H (36.0-66.0) % Eos # (Auto) 0.06 (0-0.5) Absolute Lymphs (auto) 2.66 (1.0-4.6) Absolute Monos (auto) 0.83 (0.0-1.3) Lymphocytes % 21.7 L (24.0-44.0) % Monocytes % 6.8 (0.0-12.0) % Eosinophils % 0.5 (0.00-5.0) % Basophils % 0.2 (0.0-0.4) % Absolute Granulocytes 8.68 H (1.4-6.9) Basophils # 0.02 (0-0.4) - Procedures and Test Procedures and Tests throughout Hospitalization: Therapy Orders & Screens 09/12/21 12:56 Standby ROUTINE Comment: Diagnosis: possible ruptutred membranes Discharge Exam General Appearance: no apparent distress, alert Respiratory Exam: normal breath sounds, lungs clear, No respiratory distress Cardiovascular Exam: regular rate/rhythm, normal heart sounds Gastrointestinal/Abdomen Exam: soft, other (incision c/d/i, well approximated with clara), No tenderness, No mass Extremity Exam: normal inspection, normal range of motion Skin Exam: normal color, warm, dry Final Diagnosis/Problem List - Final Discharge Diagnosis/Problem (1) delivery delivered Current Visit: Yes Status: Acute Code(s): O82 - ENCOUNTER FOR DELIVERY WITHOUT INDICATION - Discharge Disposition: Home, Self-Care Condition: Stable Prescriptions: Continue Vits W-Ca,Fe,FA(<1Mg) [] 1 each PO DAILY Discontinued Famotidine 20 mg [Pepcid 20 MG] 20 mg PO DAILY Ferrous Sulfate 325 mg [Feosol 325 mg] 1 mg PO DAILY Follow up with: MISHEL SÁNCHEZ MD [Primary Care Provider] - 1 Week
--- NOTE | 2021-09-14 12:53 | OP ---
SURGERY DATE/TIME: 09/12/2021 1133 PREOPERATIVE DIAGNOSIS: Prima breech presentation at 37 weeks. POSTOPERATIVE DIAGNOSIS: Prima breech presentation at 37 weeks. PROCEDURE: Primary lower uterine segment transverse incision section. SURGEON: Dr. Owen. ANESTHESIA: Spinal HISTORY: The patient is a 25-year-old white female who presents at 37 weeks in labor. She had gotten to 3 cm on admission and was up to 5 cm by the time Dr. Lion was able to do the evaluation. The baby is in breech presentation by ultrasound. The patient was felt the need to have section delivery in a prima breech presentation. The patient was described the risks of the procedure including the risk of wound infection, possible bleeding requiring transfusion, and possible injury to any intra-abdominal organs particularly the bladder, possible injury to the baby. The patient verbalized her understanding and desired to have the procedure performed. DESCRIPTION OF PROCEDURE: The patient is prepped and draped in the supine position. After spinal anesthesia is given, the area was prepped and draped in sterile fashion. We tested the wound area with sharp pickups. The patient had no sensation of sharpness at the wound. The baby's father was allowed to sit with the mom. A Pfannenstiel incision was made over the abdomen and carried down sharply through the fascia, which was divided in a horizontal fashion. The rectus muscles were then bluntly retracted laterally. The peritoneal cavity is entered. A bladder flap was then developed and the bladder is retracted inferiorly. The uterus is scored in a horizontal fashion, entered in the midline and the wound extended using bandage scissors. The baby delivered through leonardo breech presentation. The cord doubly clamped and divided between the clamps and the baby was handed off for further care. The placenta is then manually removed from the uterus. The uterus exteriorized and wrapped in moist gauze. The wound edges were then re-approximated using 1-0 chromic suture in a running, interlocking fashion. The peritoneal cavity is then repaired using 3-0 chromic suture in running fashion. The fascia was repaired using 0 Vicryl suture in running fashion. The skin edges were re-approximated using clara. The sponge, needle and instrument count were reported as correct at the end of the procedure. The patient did receive antibiotics prior to delivery. Estimated blood loss approximately 300 cc. The patient was taken back to the recovery room in good condition.
[2021-09-15 10:08] LABS: RPR Non Reactive (Non Reactive)
== END 2021-09-14 11:27 | disposition home or self-care (01) | DRG 788 ==
LOC: OB 09:28 → OBSVTOIN 09:28 → MED SURG 09-13 20:40
PROVIDERS: ADMIT Family Medicine; ATTEND Family Medicine
PROC: 10D00Z1 Extraction of Products of Conception, Low, Open Approach (ICD-10-PCS; principal; 2021-09-12)
DX: O64.1XX0 Obstructed labor due to breech presentation, not applicable or unspecified (principal); Z3A.37 37 weeks gestation of pregnancy; Z37.0 Single live birth
CPT/HCPCS: 36415; 64488; 76937; 76942; 84112; 85025; 85027; 85610; 85730; 86592; 86850; 86900; 86901; 94799; G0378; J0171; J0290; J0690; J1100; J1200; J1885; J2274; J2370; J2405; J2590; J2795; L0625; A9270-GY

== ENCOUNTER 2021-11-14 02:39 | Emergency (ER) | payer OTHER ==
[2021-11-14 03:13] VITALS: O2SAT 98
--- NOTE | 2021-11-14 03:17 | ERPHSYRPT ---
- History of Present Illness Time Seen by Provider: 11/14/21 03:17 Source: patient Exam Limitations: no limitations Patient Subjective Stated Complaint: "I have a lot of pressure and ringing in my ears." Triage Nursing Assessment: Patient reported having a positive home covid test on 11/09/21. After which, she developed post-nasal drip, pressure and ringing in her ears. She has used muccinex, ibuprofen, and OTC ear drops without relief of symptoms. She reported that the pressure feeling has only gotten worse which is why she is being seen in the ED. Denied headache, dizziness, odynophagia, N/V/D, chest pain, shortness of breath. Bilateral EACs with mild cerumen and no erythema. Bilateral TMs pearly israel without effusions, erythema, or edema. Oral mucosa pink/moist without ulcerations/lesions. Tonsils without erythema/exudate. Neck supple without lymphadenopathy. Symmetrical chest expansion. Heart tones RRR. Lungs vesicular with adequate airflow. Timing/Duration: gradual onset Severity: moderate ENT Location: ear (R), ear (L) Prearrival Treatment: no prearrival treatment Modifying Factors: Improves With: activity Associated Symptoms: ear pain (R), ear pain (L), cough Allergies/Adverse Reactions: No Known Drug Allergies Allergy (Verified 11/14/21 02:58) Hx Tetanus, Diphtheria Vaccination/Date Given: Yes Hx Influenza Vaccination/Date Given: Yes Hx Pneumococcal Vaccination/Date Given: No Travel Risk - International Travel Have you traveled outside of the country in past 3 weeks: No - Coronavirus Screening Are you exhibiting any of the following symptoms?: No Close contact with a COVID-19 positive Pt in past 14-21 Days: No - Vaccine Status Have you recieved a Covid-19 vaccination: No - Review of Systems Constitutional: No Symptoms, Fatigue Eyes: No Symptoms Ears, Nose, & Throat: No Symptoms, Ear Pain Respiratory: No Symptoms Cardiac: No Symptoms Abdominal/Gastrointestinal: No Symptoms Genitourinary Symptoms: No Symptoms Musculoskeletal: No Symptoms Skin: No Symptoms Neurological: No Symptoms Psychological: No Symptoms Endocrine: No Symptoms Hematologic/Lymphatic: No Symptoms Immunological/Allergic: No Symptoms All Other Systems: Reviewed and Negative (pos. home COVID test a few d ago) - Past Medical History Pertinent Past Medical History: Yes Neurological History: No Pertinent History ENT History: No Pertinent History Cardiac History: No Pertinent History Respiratory History: No Pertinent History Endocrine Medical History: No Pertinent History Musculoskeletal History: No Pertinent History GI Medical History: Gallbladder Disease History: No Pertinent History Psycho-Social History: No Pertinent History Female Reproductive Disorders: No Pertinent History Other Medical History: FX LEFT ARM IN 1ST GRADE, PT STATES FOB BROTHER HAS AUTISM - Past Surgical History Past Surgical History: Yes Neuro Surgical History: No Pertinent History Cardiac: No Pertinent History Respiratory: No Pertinent History Gastrointestinal: Cholecystectomy Genitourinary: No Pertinent History Musculoskeletal: No Pertinent History Female Surgical History: No Pertinent History - Social History Smoking Status: Current every day smoker How long have you smoked: 10 yrs Exposure to second hand smoke: Yes Drug Use: none Patient Lives Alone: No - Female History Hx Now: No - Nursing Vital Signs Nursing Vital Signs: Initial Vital Signs Temperature 98.5 F 11/14/21 02:40 Pulse Rate 75 11/14/21 02:40 Respiratory Rate 18 11/14/21 02:40 Blood Pressure 134/91 11/14/21 02:40 O2 Sat by Pulse Oximetry 98 11/14/21 02:40 Pain Scale Pain Intensity 0 - Physical Exam General Appearance: no apparent distress, alert Eye Exam: bilateral eye: PERRL Ear Exam: bilateral ear: erythema Nasal Exam: normal inspection Throat Exam: normal Neck Exam: normal inspection Cardiovascular/Respiratory Exam: chest non-tender, normal breath sounds Abdominal Exam: non-tender, soft Neurologic Exam: alert, oriented x 3, cooperative Skin Exam: normal color SpO2 Interpretation: normal SpO2: 98 O2 Delivery: Room Air - Course Nursing assessment & vital signs reviewed: Yes Ordered Tests: Medication Summary Discontinued Medications Generic Name Dose Route Start Last Admin Trade Name Kerri PRN Reason Stop Dose Admin Amoxicillin 500 mg 11/14/21 03:25 11/14/21 03:29 Amoxicillin Trihydrate 500 Mg Capsule PO 11/14/21 03:26 500 mg STAT ONE Administration Amoxicillin Confirm 11/14/21 03:28 Amoxicillin Trihydrate 500 Mg Capsule Administered 11/14/21 03:29 Dose 500 mg .ROUTE .STK-MED ONE - Progress Progress: unchanged Progress Note: Mild BOM, Rx amoxil. 11/14/21 06:12 Counseled pt/family regarding: diagnosis - Departure Departure Disposition: Home Clinical Impression: Otitis media Qualifiers: Otitis media type: suppurative Chronicity: acute Laterality: bilateral Recurrence: non-recurrent Spontaneous tympanic membrane rupture: without spont aneous rupture Qualified Code(s): H66.003 - Acute suppurative otitis media without spontaneous rupture of ear drum, bilateral Condition: Stable Critical Care Time: No Referrals: MISHEL SÁNCHEZ MD [Primary Care Provider] - Follow up/PCP as directed Additional Instructions: OTC med as helpful, recheck as needed. Prescriptions: Amoxicillin 500 mg PO TID 7 Days #21 tablet
[2021-11-14] MEDS ORDERED: AMOXIL 500 MG PO ONE (03:25)
[2021-11-14] MEDS ORDERED: AMOXIL 500 MG ONE (03:28)
[2021-11-14 04:06] VITALS: BP 120/81; PULSE 88
== END 2021-11-14 04:05 | disposition home or self-care (01) ==
LOC: ED 02:39
DX: H66.003 Acute suppurative otitis media without spontaneous rupture of ear drum, bilateral (principal); Z72.0 Tobacco use
CPT/HCPCS: 99283; A9270-GY

== ENCOUNTER 2022-02-10 03:46 | Emergency (ER) | payer OTHER ==
[2022-02-10] MEDS ORDERED: BABY ASPIRIN 81 MG CHEW PO ONE (04:15)
[2022-02-10 04:43] LABS: Absolute Neutrophil Ct (ANC) 5.03 (1.4-6.9); Basophil (Absolute #) 0.02 (0-0.4); Eosinophil % 1.1 % (0.00-5.0); Hematocrit 37.5 % (35-47); Hemoglobin 12.8 gm/dl (12.0-16.0); Lymphocyte (Absolute #) 3.66 (1.0-4.6); Lymphocytes % 38.5 % (24.0-44.0); Mean Cell Volume 89.7 fl (78-100); Mean Corpuscular Hemoglobin 30.6 pg (26-32); Mean Corpuscular Hgb Concent. 34.1 g/dl (32-36); Mean Platelet Volume 10.8 fl (7.5-11.0); Monocyte (Absolute #) 0.69 (0.0-1.3); Monocytes % 7.3 % (0.0-12.0); Neutrophil % 52.9 % (36.0-66.0); Platelet Count 354 K/mm3 (150-450); Red Blood Count 4.18 M/mm3 (4.1-5.4); Red Cell Distribution Width 13.8 % (11.5-14.0); White Blood Count 9.5 K/mm3 (4.0-10.5)
[2022-02-10 05:05] LABS: ALBUMIN 4.3 g/dL (3.5-5.0); ALKALINE PHOSPHATASE 77 U/L (38-126); ANION GAP 14.2 MEQ/L (5-15); BLOOD UREA NITROGEN 15 mg/dL (7-17); CHLORIDE 106 mmol/L (98-107); Calcium 9.3 mg/dL (8.4-10.2); Carbon Dioxide 23 mmol/L (22-30); Creatinine 1 0.56 mg/dL (0.52-1.04); EST GLOMERULAR FILTRATION RATE > 60.0 ML/MIN; Glucose 93 mg/dL (74-106); NT PRO BNP 19.4 pg/mL (0-450); Potassium 4.4 mmol/L (3.5-5.1); SGOT/AST 35 U/L (14-36); SGPT/ALT 39 U/L (0-35); SODIUM 138 mmol/L (137-145); Total Protein 7.3 g/dL (6.3-8.2)
[2022-02-10 05:34] VITALS: O2SAT 99
--- NOTE | 2022-02-10 06:09 | ERPHSYRPT ---
- History of Present Illness Time Seen by Provider: 02/10/22 04:15 Historian: patient Exam Limitations: no limitations Patient Subjective Stated Complaint: Patient states she began having chest pain approx 1 hour prior to coming to ED when resting/trying to sleep. She denies SOB or vomiting but does have some mild c/o nausea. States pain radiates from her chest to her left should and down her left arm. Describes chest pain as, "not really a pain but more of a discomfort" and describes the pain in her arm/shoulder as "a tingling sensation." Triage Nursing Assessment: Patient ambulated back to ED without difficulties. She is alert and oriented and answering questions appropriately. No SOB noted. SKin tone normal with a rash noted to BUE that patient states is not new and normal for her. No edema noted. Patient with good capillary refill. BOLANOS WNL without any difficulties. No abnormalities noted in gait during ambulation. Physician History: 26 years old female presented to the ER with chief complaint of chest pain. Patient report having off-and-on chest pain for couple of days and this time it started almost an hour prior to arrival, on the left side with radiation to left arm/shoulder, initially moderate intensity and currently minimal discomfort/pressure. Denies associated palpitations or shortness of breath. No fever chills or cough reported. Does report associated nausea but no vomiting. Timing/Duration: hour(s) (1), constant, sudden, improved Activities at Onset: rest Quality: aching, dullness Chest Pain Radiation: arm Severity of Pain-Max: moderate Severity of Pain-Current: mild Modifying Factors: Improves With: nothing Associated Symptoms: nausea Prior Chest Pain/Cardiac Workup: no prior chest pain, no prior cardiac workup Nitro Today/Relief: no nitro taken today Aspirin Treatment Today: no aspirin today Allergies/Adverse Reactions: No Known Drug Allergies Allergy (Verified 02/10/22 03:47) Home Medications: No Reportable Medications [No Reported Medications] 02/10/22 [History] Hx Tetanus, Diphtheria Vaccination/Date Given: Yes Hx Influenza Vaccination/Date Given: Yes Hx Pneumococcal Vaccination/Date Given: No Immunizations Up to Date: Yes Travel Risk - International Travel Have you traveled outside of the country in past 3 weeks: No - Coronavirus Screening Are you exhibiting any of the following symptoms?: No Close contact with a COVID-19 positive Pt in past 14-21 Days: No - Vaccine Status Have you recieved a Covid-19 vaccination: No - Review of Systems Constitutional: No Symptoms Eyes: No Symptoms Ears, Nose, & Throat: No Symptoms Respiratory: No Symptoms Cardiac: Chest Pain Abdominal/Gastrointestinal: Nausea Genitourinary Symptoms: No Symptoms Musculoskeletal: No Symptoms Skin: No Symptoms Neurological: No Symptoms Psychological: Anxiety Endocrine: No Symptoms Hematologic/Lymphatic: No Symptoms Immunological/Allergic: No Symptoms - Past Medical History Pertinent Past Medical History: Yes Neurological History: No Pertinent History ENT History: No Pertinent History Cardiac History: No Pertinent History Respiratory History: No Pertinent History Endocrine Medical History: No Pertinent History Musculoskeletal History: No Pertinent History GI Medical History: Gallbladder Disease History: No Pertinent History Psycho-Social History: No Pertinent History Female Reproductive Disorders: No Pertinent History Other Medical History: FX LEFT ARM IN 1ST GRADE - Past Surgical History Past Surgical History: Yes Neuro Surgical History: No Pertinent History Cardiac: No Pertinent History Respiratory: No Pertinent History Gastrointestinal: Cholecystectomy Genitourinary: No Pertinent History Musculoskeletal: No Pertinent History Female Surgical History: Section - Social History Smoking Status: Current every day smoker How long have you smoked: 10 yrs Exposure to second hand smoke: Yes Drug Use: none Patient Lives Alone: No - Female History Hx Last Menstrual Period: Unsure; has an IUD Hx Now: (UNKN) - Nursing Vital Signs Nursing Vital Signs: Initial Vital Signs Temperature 97.4 F 02/10/22 03:47 Pulse Rate 74 02/10/22 03:47 Respiratory Rate 13 02/10/22 03:47 Blood Pressure 119/67 02/10/22 03:47 O2 Sat by Pulse Oximetry 99 02/10/22 03:47 Pain Scale Pain Intensity 0 - Physical Exam General Appearance: no apparent distress, alert, anxiety Eye Exam: PERRL/EOMI, eyes nml inspection Ears, Nose, Throat Exam: normal ENT inspection, TMs normal, pharynx normal, moist mucous membranes Neck Exam: normal inspection, supple, full range of motion Respiratory Exam: normal breath sounds, lungs clear Cardiovascular Exam: regular rate/rhythm, normal heart sounds Gastrointestinal/Abdomen Exam: soft, normal bowel sounds, No tenderness Back Exam: normal inspection, normal range of motion Extremity Exam: normal inspection, normal range of motion Neurologic Exam: alert, oriented x 3, cooperative Skin Exam: normal color SpO2 Interpretation: normal SpO2: 99 O2 Delivery: Room Air - Course EKG Interpreted by Me: RATE (82), Sinus Rhythm, NORMAL AXIS, NORMAL INTERVALS, NORMAL QRS Ordered Tests: Active Orders 24 hr Category Date Time Status Business Rules Analyst STAT Care 02/10/22 04:16 Active EKG-ER Only STAT Care 02/10/22 04:15 Active IV Insertion STAT Care 02/10/22 04:15 Active CHEST 1 VIEW (PORTABLE) Stat Exams 02/10/22 04:16 Taken CBC W DIFF Stat Lab 02/10/22 04:15 Completed CMP Stat Lab 02/10/22 04:15 Completed D-DIMER QUANTITATIVE Stat Lab 02/10/22 04:15 Completed HCG,QUALITATIVE URINE Stat Lab 02/10/22 04:16 Completed NT PRO BNP Stat Lab 02/10/22 04:15 Completed TROPONIN Q3H Lab 02/10/22 04:15 Completed TROPONIN Q3H Lab 02/10/22 07:30 Ordered TROPONIN Q3H Lab 02/10/22 10:30 Ordered TROPONIN Q3H Lab 02/10/22 13:30 Ordered TROPONIN Q3H Lab 02/10/22 16:30 Ordered Medication Summary Discontinued Medications Generic Name Dose Route Start Last Admin Trade Name Freq PRN Reason Stop Dose Admin Aspirin 324 mg 02/10/22 04:15 02/10/22 04:26 Aspirin 81 Mg Tab.Chew PO 02/10/22 04:16 324 mg STAT ONE Administration Lab/Rad Data: Laboratory Result Diagrams 02/10/22 04:15 02/10/22 04:15 Laboratory Results 02/10/22 02/10/22 02/10/22 Range/Units 04:16 04:15 04:15 WBC (4.0-10.5) K/mm3 RBC (4.1-5.4) M/mm3 Hgb (12.0-16.0) gm/dl Hct (35-47) % MCV (78-100) fl MCH (26-32) pg MCHC (32-36) g/dl RDW (11.5-14.0) % Plt Count (150-450) K/mm3 MPV (7.5-11.0) fl Gran % (36.0-66.0) % Eos # (Auto) (0-0.5) Absolute Lymphs (auto) (1.0-4.6) Absolute Monos (auto) (0.0-1.3) Lymphocytes % (24.0-44.0) % Monocytes % (0.0-12.0) % Eosinophils % (0.00-5.0) % Basophils % (0.0-0.4) % Absolute Granulocytes (1.4-6.9) Basophils # (0-0.4) D-Dimer 283 (215-500) ng/mL Sodium (137-145) mmol/L Potassium (3.5-5.1) mmol/L Chloride (98-107) mmol/L Carbon Dioxide (22-30) mmol/L Anion Gap (5-15) MEQ/L BUN (7-17) mg/dL Creatinine (0.52-1.04) mg/dL Estimated GFR ML/MIN Glucose (74-106) mg/dL Calcium (8.4-10.2) mg/dL Total Bilirubin (0.2-1.3) mg/dL AST (14-36) U/L ALT (0-35) U/L Alkaline Phosphatase (38-126) U/L Troponin I < 0.012 (0.000-0.034) ng/mL NT-Pro-B Natriuret Pep (0-450) pg/mL Serum Total Protein (6.3-8.2) g/dL Albumin (3.5-5.0) g/dL Urine HCG, Qual NEGATIVE (Negative) 02/10/22 02/10/22 Range/Units 04:15 04:15 WBC 9.5 (4.0-10.5) K/mm3 RBC 4.18 (4.1-5.4) M/mm3 Hgb 12.8 (12.0-16.0) gm/dl Hct 37.5 (35-47) % MCV 89.7 (78-100) fl MCH 30.6 (26-32) pg MCHC 34.1 (32-36) g/dl RDW 13.8 (11.5-14.0) % Plt Count 354 (150-450) K/mm3 MPV 10.8 (7.5-11.0) fl Gran % 52.9 (36.0-66.0) % Eos # (Auto) 0.10 (0-0.5) Absolute Lymphs (auto) 3.66 (1.0-4.6) Absolute Monos (auto) 0.69 (0.0-1.3) Lymphocytes % 38.5 (24.0-44.0) % Monocytes % 7.3 (0.0-12.0) % Eosinophils % 1.1 (0.00-5.0) % Basophils % 0.2 (0.0-0.4) % Absolute Granulocytes 5.03 (1.4-6.9) Basophils # 0.02 (0-0.4) D-Dimer (215-500) ng/mL Sodium 138 (137-145) mmol/L Potassium 4.4 (3.5-5.1) mmol/L Chloride 106 (98-107) mmol/L Carbon Dioxide 23 (22-30) mmol/L Anion Gap 14.2 (5-15) MEQ/L BUN 15 (7-17) mg/dL Creatinine 0.56 (0.52-1.04) mg/dL Estimated GFR > 60.0 ML/MIN Glucose 93 (74-106) mg/dL Calcium 9.3 (8.4-10.2) mg/dL Total Bilirubin 0.50 (0.2-1.3) mg/dL AST 35 (14-36) U/L ALT 39 H (0-35) U/L Alkaline Phosphatase 77 (38-126) U/L Troponin I (0.000-0.034) ng/mL NT-Pro-B Natriuret Pep 19.4 (0-450) pg/mL Serum Total Protein 7.3 (6.3-8.2) g/dL Albumin 4.3 (3.5-5.0) g/dL Urine HCG, Qual (Negative) - Progress Progress: improved Air Movement: good Progress Note: 02/10/22 06:07 26 years old is evaluated for left-sided chest pain. EKG showed normal sinus rhythm. Pain is improving on presentation in the ER. She is given aspirin and does not want any other pain medication. She has a negative troponins D-dimer, chest x-ray some questionable airspace disease on the right lower lobe but patient is maintaining oxygen around 98%. Grossly unremarkable chemistries. Low heart score, do not think she needs further evaluation and is stable to be discharged with outpatient follow-up. Discussed signs symptoms of worsening needing return to ER which she seems understanding. Blood Culture(s) Obtained: No Antibiotics given: No Counseled pt/family regarding: lab results, diagnosis, need for follow-up, rad results, smoking cessation - Departure Departure Disposition: Home Clinical Impression: Atypical chest pain Condition: Stable Critical Care Time: No Referrals: MISHEL SÁNCHEZ MD [Primary Care Provider] - Follow up/PCP as directed (1-2 days for reevaluation) Instructions: Angina (DC), Chest Pain (DC) Additional Instructions: Take Tylenol as needed for pain. Follow-up with primary care for reevaluation. Do not smoke. Return to ER for worsening chest pain or if develop palpitation/shortness of breath etc.
[2022-02-10 06:16] VITALS: BP 119/66; PULSE 74
--- NOTE | 2022-02-10 09:17 | XRAY ---
Indication: Chest pain. Comparison: None Portable chest demonstrates normal heart and lungs. Bony thorax intact with minimal scoliosis.
== END 2022-02-10 06:25 | disposition home or self-care (01) ==
LOC: ED 03:46
DX: R07.89 Other chest pain (principal); R11.0 Nausea; Z72.0 Tobacco use
CPT/HCPCS: 36000; 36415; 71045; 80053; 83880; 84484; 84703; 85025; 85379; 93005; 93041; 99284; A9270-GY

== ENCOUNTER 2025-05-24 09:59 | Emergency (ER) | payer OTHER ==
--- NOTE | 2025-05-24 10:08 | ERPHSYRPT ---
- History of Present Illness Time Seen by Provider: 05/24/25 10:07 Source: patient, family Exam Limitations: no limitations Physician History: This is an overweight 29-year-old white female patient arrives by private vehicle from the urgent care center where they took a history from her because of her symptoms of right facial numbness and numbness of her right side of her tongue, she was sent to our emergency department for evaluation. Patient's primary care provider is Dr. Sánchez. Symptoms began approximately 3 hours prior to arrival. She noticed them when she was awake. They have improved but still present. She has never had this type of symptom pattern before. She denies head injury. She denies new medications. She has not had flulike symptoms. She has no pain anywhere. There has not been any nausea vomiting or diarrhea symptoms. She has had no visual changes. Timing/Duration: today Severity: mild Character of Deficits: none (No deficits but she has the right side facial numbness) Deficits: no difficulties Baseline/Normal Cognition: alert oriented x 3 Current Cognition: alert oriented x 3 Baseline Gait: walks w/o assistance Associated Symptoms: denies symptoms Allergies/Adverse Reactions: No Known Drug Allergies Allergy (Verified 04/08/25 17:38) Hx Tetanus, Diphtheria Vaccination/Date Given: No Hx Influenza Vaccination/Date Given: No Hx Pneumococcal Vaccination/Date Given: No Travel Risk - International Travel Have you traveled outside of the country in past 3 weeks: No - Emerging Infectious Disease Are you exhibiting symptoms associated with any current EIDs: No - Review of Systems Constitutional: No Symptoms Eyes: No Symptoms Ears, Nose, & Throat: No Symptoms Respiratory: No Symptoms Cardiac: No Symptoms Abdominal/Gastrointestinal: No Symptoms Genitourinary Symptoms: No Symptoms Musculoskeletal: No Symptoms Skin: No Symptoms Neurological: Other (Right side facial numbness, right side lingual numbness) Psychological: No Symptoms Endocrine: No Symptoms Hematologic/Lymphatic: No Symptoms Immunological/Allergic: No Symptoms All Other Systems: Reviewed and Negative - Past Medical History Pertinent Past Medical History: Yes Neurological History: No Pertinent History ENT History: No Pertinent History Cardiac History: No Pertinent History Respiratory History: No Pertinent History Endocrine Medical History: No Pertinent History Musculoskeletal History: No Pertinent History History: No Pertinent History Psycho-Social History: No Pertinent History Female Reproductive Disorders: No Pertinent History Other Medical History: FX LEFT ARM IN 1ST GRADE - Past Surgical History Past Surgical History: Yes Neuro Surgical History: No Pertinent History Cardiac: No Pertinent History Respiratory: No Pertinent History Gastrointestinal: Cholecystectomy Genitourinary: No Pertinent History Musculoskeletal: No Pertinent History Female Surgical History: Section - Female History Hx Last Menstrual Period: IRREGULAR - Social History Smoking Status: Current every day smoker How long have you smoked: 10 yrs Exposure to second hand smoke: Yes Drug Use: none - Social Determinants of Health Will the patient participate in the screening: Declined to provide - Nursing Vital Signs Nursing Vital Signs: Initial Vital Signs Temperature 97 F 05/24/25 10:00 Pulse Rate 68 05/24/25 10:00 Respiratory Rate 18 05/24/25 10:00 Blood Pressure 125/91 05/24/25 10:00 O2 Sat by Pulse Oximetry 98 05/24/25 10:00 Pain Scale Pain Intensity 0 - [place] Coma Scale Best Eye Response (Mary): (4) open spontaneously Best Verbal Response (Mary): (5) oriented Best Motor Response (Mary): (6) obeys commands [place] Total: 15 - Physical Exam General Appearance: no apparent distress, alert, anxiety Eye Exam: bilateral eye: normal inspection, PERRL, EOMI Ears, Nose, Throat Exam: normal ENT inspection, moist mucous membranes Neck Exam: normal inspection, non-tender, supple, full range of motion Respiratory: normal breath sounds, lungs clear, airway intact, No chest tenderness, No respiratory distress Cardiovascular: regular rate/rhythm, normal heart sounds, normal peripheral pulses Gastrointestinal: soft, normal bowel sounds, No tenderness Pelvic Exam: not done Rectal Exam: not done Back Exam: normal inspection, normal range of motion, No CVA tenderness, No vertebral tenderness Extremity Exam: normal inspection, normal range of motion, pelvis stable Mental Status: alert, oriented x 3, cooperative dumper operator Exam: normal hearing, normal speech, PERRL, facial paresthesias (Numbness right side of her face), tongue midline, No abnormal speech, No facial droop, No gaze palsy Coordination/Gait: normal gait, normal cerebellar function Motor/Sensory: no motor deficit, no sensory deficit Skin Exam: normal color, warm, dry SpO2 Interpretation: normal O2 Delivery: Room Air - Course Nursing assessment & vital signs reviewed: Yes Ordered Tests: Active Orders 24 hr Category Date Time Status IV Insertion STAT Care 05/24/25 10:08 Active NPO (ED) STAT Care 05/24/25 10:08 Active HEAD WITHOUT CONTRAST [CT] Stat Exams 05/24/25 10:08 Completed CBC W DIFF Stat Lab 05/24/25 10:08 Completed CMP Stat Lab 05/24/25 10:40 Completed CULTURE,URINE Stat Lab 05/24/25 11:39 Received HCG QUALITATIVE, SERUM Stat Lab 05/24/25 10:40 Completed UA W/RFX UR CULTURE Stat Lab 05/24/25 11:39 Completed Lab/Rad Data: Laboratory Result Diagrams 05/24/25 10:08 05/24/25 10:40 Laboratory Results 05/24/25 05/24/25 05/24/25 Range/Units 11:39 10:40 10:40 WBC (3.98-10.04) x10^3/uL RBC (3.93-5.22) x10^6/uL Hgb (11.2-15.7) g/dL Hct (34.1-44.9) % MCV (79.4-94.8) fL MCH (25.6-32.2) pg MCHC (32.2-35.5) g/dL RDW (11.7-14.4) % Plt Count (182-369) x10^3/uL MPV (9.4-12.3) fL Gran % (34.0-71.1) % Immature Gran % (Auto) (0.001-0.429) % Nucleat RBC Rel Count (0.00-0.2) % Eos # (Auto) (0.04-0.36) x10^3/uL Immature Gran # (Auto) (0.001-0.031) x10^3u/L Absolute Lymphs (auto) (1.18-3.74) x10^3/uL Absolute Monos (auto) (0.24-0.86) x10^3/uL Absolute Nucleated RBC (0.00-0.012) x10^3u/L Lymphocytes % (19.3-51.7) % Monocytes % (4.7-12.5) % Eosinophils % (0.7-5.8) % Basophils % (0.1-1.2) % Absolute Granulocytes (1.56-6.13) x10^3/uL Basophils # (0.01-0.08) x10^3/uL Sodium 140 (135-145) mmol/L Potassium 4.3 (3.5-5.1) mmol/L Chloride 105 (98-107) mmol/L Carbon Dioxide 26 (22-30) mmol/L Anion Gap 13.6 (5-15) MEQ/L BUN 11 (7-17) mg/dL Creatinine 0.71 (0.52-1.04) mg/dL Estimated GFR 118.0 ML/MIN Glucose 101 (74-106) mg/dL Calcium 9.9 (8.4-10.2) mg/dL Total Bilirubin 0.50 (0.2-1.3) mg/dL AST 27 (14-36) U/L ALT 28 (0-35) U/L Alkaline Phosphatase 68 (38-126) U/L Serum Total Protein 8.1 (6.3-8.2) g/dL Albumin 4.5 (3.5-5.0) g/dL Serum HCG, Qual NEGATIVE (NEGATIVE) Urine Color Yellow (Yellow) Urine Appearance Turbid A (Clear) Urine pH 7.5 (4.6-8.0) Ur Specific [place] 1.020 (1.005-1.030) Urine Protein Negative (Negative) Urine Glucose (UA) Negative (Negative) mg/dL Urine Ketones Negative (Negative) Urine Blood Negative (Negative) Urine Nitrite Negative (Negative) Urine Bilirubin Negative (Negative) Urine Urobilinogen 0.2 (0.2) mg/dL Ur Leukocyte Esterase Small A (Negative) U Hyaline Cast (Auto) NONE SEEN (0-2) /LPF Urine Microscopic RBC 0-2 (0-5) /HPF Urine Microscopic WBC 11-20 A (0-5) /HPF Ur Epithelial Cells Few (None Seen) /HPF Urine Bacteria Moderate A (None Seen) /HPF Urine Culture Reflexed YES (NO) 05/24/25 Range/Units 10:08 WBC 6.4 (3.98-10.04) x10^3/uL RBC 4.43 (3.93-5.22) x10^6/uL Hgb 13.9 (11.2-15.7) g/dL Hct 39.9 (34.1-44.9) % MCV 90.1 (79.4-94.8) fL MCH 31.4 (25.6-32.2) pg MCHC 34.8 (32.2-35.5) g/dL RDW 11.9 (11.7-14.4) % Plt Count 330 (182-369) x10^3/uL MPV 10.1 (9.4-12.3) fL Gran % 60.1 (34.0-71.1) % Immature Gran % (Auto) 0.3 (0.001-0.429) % Nucleat RBC Rel Count 0.0 (0.00-0.2) % Eos # (Auto) 0.03 L (0.04-0.36) x10^3/uL Immature Gran # (Auto) 0.02 (0.001-0.031) x10^3u/L Absolute Lymphs (auto) 2.04 (1.18-3.74) x10^3/uL Absolute Monos (auto) 0.45 (0.24-0.86) x10^3/uL Absolute Nucleated RBC 0.00 (0.00-0.012) x10^3u/L Lymphocytes % 31.8 (19.3-51.7) % Monocytes % 7.0 (4.7-12.5) % Eosinophils % 0.5 L (0.7-5.8) % Basophils % 0.3 (0.1-1.2) % Absolute Granulocytes 3.85 (1.56-6.13) x10^3/uL Basophils # 0.02 (0.01-0.08) x10^3/uL Sodium (135-145) mmol/L Potassium (3.5-5.1) mmol/L Chloride (98-107) mmol/L Carbon Dioxide (22-30) mmol/L Anion Gap (5-15) MEQ/L BUN (7-17) mg/dL Creatinine (0.52-1.04) mg/dL Estimated GFR ML/MIN Glucose (74-106) mg/dL Calcium (8.4-10.2) mg/dL Total Bilirubin (0.2-1.3) mg/dL AST (14-36) U/L ALT (0-35) U/L Alkaline Phosphatase (38-126) U/L Serum Total Protein (6.3-8.2) g/dL Albumin (3.5-5.0) g/dL Serum HCG, Qual (NEGATIVE) Urine Color (Yellow) Urine Appearance (Clear) Urine pH (4.6-8.0) Ur Specific [place] (1.005-1.030) Urine Protein (Negative) Urine Glucose (UA) (Negative) mg/dL Urine Ketones (Negative) Urine Blood (Negative) Urine Nitrite (Negative) Urine Bilirubin (Negative) Urine Urobilinogen (0.2) mg/dL Ur Leukocyte Esterase (Negative) U Hyaline Cast (Auto) (0-2) /LPF Urine Microscopic RBC (0-5) /HPF Urine Microscopic WBC (0-5) /HPF Ur Epithelial Cells (None Seen) /HPF Urine Bacteria (None Seen) /HPF Urine Culture Reflexed (NO) - Progress Progress: improved Progress Note: 05/24/25 10:57 My medical decision making and the assignment of moderate complexity of this patient's medical issue today is based on review of the patient's past medical history, review of the patient's medication list, review of the patient drug allergy list, history present illness and physical findings on examination. The workup in this patient includes placement of a intravenous line, twelve-lead EKG, urinalysis, test, CBC, CMP, magnesium level, CT scan of the head without contrast. Differential diagnosis includes but is not limited to acute intracranial abnormality, electrolyte abnormalities, anxiety about health, arrhythmia, dehydration, urinary tract infection 05/24/25 12:06 I interpreted the patient's laboratory data results. Based on the laboratory data results the patient does have a mild urinary tract infection. There are no other acute, emergent findings in her lab work results. Counseled pt/family regarding: lab results, diagnosis, need for follow-up, rad results Medical Desision Making - Diagnostic Testing Diagnostic test were ordered, analyzed, and reviewed by me: Yes Radiological Interpretation: Reviewed by me, Teleradiologist Report - Risk of complications The pt has a mod risk of morbidity or mortality based on: Need for prescription drug management - Departure Departure Disposition: Home Clinical Impression: Right facial numbness, UTI (urinary tract infection) Condition: Stable Critical Care Time: No Referrals: MISHEL SÁNCHEZ MD [Primary Care Provider, [facility]] - Follow up/PCP as directed Additional Instructions: Drink plenty of fluids. Take your antibiotics as prescribed. Call your primary care provider today, 05/24/2025, to make arranges for follow-up appointment for further evaluation and management. Prescriptions: Cephalexin Mh 500 mg [Keflex 500 mg] 500 mg PO TID #21 cap
[2025-05-24 10:31] VITALS: RESP 18; TEMP 97
[2025-05-24 10:48] LABS: BASOPHIL % 0.3 % (0.1-1.2); Basophil (Absolute #) 0.02 x10^3/uL (0.01-0.08); Eosinophil (Absolute #) 0.03 x10^3/uL (0.04-0.36); Hematocrit 39.9 % (34.1-44.9); Hemoglobin 13.9 g/dL (11.2-15.7); IMMATURE GRAN # 0.02 x10^3u/L (0.001-0.031); IMMATURE GRAN % 0.3 % (0.001-0.429); Lymphocyte (Absolute #) 2.04 x10^3/uL (1.18-3.74); Mean Corpuscular Hemoglobin 31.4 pg (25.6-32.2); Mean Corpuscular Hgb Concent. 34.8 g/dL (32.2-35.5); Monocyte (Absolute #) 0.45 x10^3/uL (0.24-0.86); NUCLEATED RBC # 0.00 x10^3u/L (0.00-0.012); NUCLEATED RBC % 0.0 % (0.00-0.2); Platelet Count 330 x10^3/uL (182-369); Red Blood Count 4.43 x10^6/uL (3.93-5.22); White Blood Count 6.4 x10^3/uL (3.98-10.04)
[2025-05-24 11:00] LABS: HCG SERUM TEST NEGATIVE (NEGATIVE)
[2025-05-24 11:03] LABS: Calcium 9.9 mg/dL (8.4-10.2); Carbon Dioxide 26.0 mmol/L (22-30); Creatinine 1 0.71 mg/dL (0.52-1.04); EST GLOMERULAR FILTRATION RATE 118.0 ML/MIN; Glucose 101.0 mg/dL (74-106); Potassium 4.3 mmol/L (3.5-5.1); SGOT/AST 27.0 U/L (14-36); SGPT/ALT 28.0 U/L (0-35); Total Protein 8.1 g/dL (6.3-8.2)
[2025-05-24 11:07] VITALS: PULSE 82; O2SAT 98
[2025-05-24 11:47] LABS: Glucose, Urine Negative (Negative); Protein,Urine Dip Negative (Negative); RBC 0-2 /HPF (0-5)
--- NOTE | 2025-05-24 11:55 | XRAY ---
Indication: Facial numbness. Multiple contiguous axial images obtained through the head without contrast. Comparison: None Normal appearing brain parenchyma, ventricles, and bony calvarium. Visualized paranasal sinuses and mastoid air cells are clear. Impression: Normal CT head without contrast exam.
[2025-05-24 12:18] VITALS: BP 108/71
== END 2025-05-24 12:24 | disposition home or self-care (01) ==
LOC: ED 09:59
DX: R20.0 Anesthesia of skin (principal); N39.0 Urinary tract infection, site not specified; Z79.899 Other long term (current) drug therapy; Z72.0 Tobacco use

== ENCOUNTER 2025-09-10 20:33 | Emergency (ER) | payer OTHER ==
[2025-09-10 20:48] VITALS: TEMP 97; O2SAT 98
--- NOTE | 2025-09-10 20:51 | ERPHSYRPT ---
- History of Present Illness Time Seen by Provider: 09/10/25 20:40 Historian: patient Patient Subjective Stated Complaint: "I have been having chest pains for like 3 weeks, I saw my doctor and she thought it was acid reflux but then it didn't go away so I saw her again and she put me on Lexapro, thinking it was anxiety but then I'm still having these pains. They are worse when I'm up walking." Triage Nursing Assessment: Pt presents to ER by private vehicle, complaining of chest pains for the past 3 weeks. Pt has been seen by her PCP twice and trialed on Omeprazole and Lexapro without relief. Pt states pain is worse when she is ambulating. Currently rating pain 5/10 scale. Denies shortness of breath, respirations are easy. Pt states pains are in middle of chest and radiate to the left chest. Complains of some nausea, lightheadedness, and dizziness. Pt denies vomiting/diarrhea/fevers. Skin is pink, warm, and dry. Denies any recent stressors. Physician History: This healthy 29-year-old female who presents with approximately 3 weeks of chest discomfort. She reports a vague discomfort across the middle of her chest that seems to be worse when she moves around. She denies any cough or shortness of breath. She reports no radiation of the symptoms. She states that she was put on Lexapro by her provider and omeprazole but continues to have symptoms. She states that the symptoms are no better or worse but have not resolved so she went to get checked out. Fever or chills. No lower extremity swelling. Aspirin Treatment Today: no aspirin today Allergies/Adverse Reactions: No Known Drug Allergies Allergy (Verified 09/10/25 20:37) Home Medications: Escitalopram Oxalate [Lexapro] 10 mg PO DAILY 09/10/25 [History] Omeprazole 40 mg PO DAILY 09/10/25 [History] Hx Tetanus, Diphtheria Vaccination/Date Given: Yes Hx Influenza Vaccination/Date Given: No Hx Pneumococcal Vaccination/Date Given: No Immunizations Up to Date: No Travel Risk - International Travel Have you traveled outside of the country in past 3 weeks: No - Emerging Infectious Disease Are you exhibiting symptoms associated with any current EIDs: No - Review of Systems Constitutional: No Fever, No Chills Eyes: No Symptoms Ears, Nose, & Throat: No Symptoms Respiratory: No Cough, No Dyspnea Cardiac: Chest Pain, No Edema, No Syncope, No PND Abdominal/Gastrointestinal: No Abdominal Pain, No Nausea, No Vomiting, No Diarrhea Genitourinary Symptoms: No Dysuria Musculoskeletal: No Back Pain, No Neck Pain Skin: No Rash Neurological: No Dizziness, No Focal Weakness, No Sensory Changes Psychological: No Symptoms Endocrine: No Symptoms All Other Systems: Reviewed and Negative - Past Medical History Pertinent Past Medical History: Yes Neurological History: No Pertinent History ENT History: No Pertinent History Cardiac History: No Pertinent History Respiratory History: No Pertinent History Endocrine Medical History: No Pertinent History Musculoskeletal History: No Pertinent History GI Medical History: GERD, Gallbladder Disease History: No Pertinent History Psycho-Social History: Anxiety Female Reproductive Disorders: No Pertinent History Other Medical History: FX LEFT ARM IN 1ST GRADE - Past Surgical History Past Surgical History: Yes Neuro Surgical History: No Pertinent History Cardiac: No Pertinent History Respiratory: No Pertinent History Gastrointestinal: Cholecystectomy Genitourinary: No Pertinent History Musculoskeletal: No Pertinent History Female Surgical History: Section - Female History Hx Last Menstrual Period: unknown Hx Now: No - Social History Smoking Status: Never smoker Exposure to second hand smoke: No Drug Use: none - Social Determinants of Health Will the patient participate in the screening: Yes Do you worry about a steady place to live?: No Do you have any problems with any of the following?: No known problems In the past 12 months,have you had to go without utilities?: No Transportation Issues: No Has anyone in your support network made you feel unsafe?: No Have you or anyone in your house had to go w/o enough food: No - Nursing Vital Signs Nursing Vital Signs: Initial Vital Signs Temperature 97 F 09/10/25 20:39 Pulse Rate 86 09/10/25 20:39 Respiratory Rate 20 09/10/25 20:39 Blood Pressure 126/71 09/10/25 20:39 O2 Sat by Pulse Oximetry 98 09/10/25 20:39 Pain Scale Pain Intensity 5 - Physical Exam General Appearance: no apparent distress, alert Eye Exam: PERRL/EOMI, eyes nml inspection Ears, Nose, Throat Exam: normal ENT inspection, moist mucous membranes Neck Exam: normal inspection, non-tender, supple, full range of motion Respiratory Exam: normal breath sounds, lungs clear, No respiratory distress Cardiovascular Exam: regular rate/rhythm, normal heart sounds Gastrointestinal/Abdomen Exam: soft, No tenderness, No mass Back Exam: normal inspection, No CVA tenderness, No vertebral tenderness Extremity Exam: normal inspection, normal range of motion Neurologic Exam: alert, oriented x 3, cooperative, normal mood/affect, sensation nml, No motor deficits Skin Exam: normal color, warm, dry SpO2: 98 Ordered Tests: Active Orders 24 hr Category Date Time Status EKG-ER Only STAT Care 09/10/25 20:44 Active CHEST 1 VIEW (PORTABLE) Stat Exams 09/10/25 20:46 Taken CBC W DIFF Stat Lab 09/10/25 20:40 Completed CMP Stat Lab 09/10/25 20:40 Completed TROPONIN Q4H Lab 09/10/25 20:40 Completed TROPONIN Q4H Lab 09/11/25 01:00 Ordered TROPONIN Q4H Lab 09/11/25 05:00 Ordered Lab/Rad Data: Laboratory Result Diagrams 09/10/25 20:40 09/10/25 20:40 Laboratory Results 09/10/25 09/10/25 09/10/25 Range/Units 20:40 20:40 20:40 WBC 9.9 (3.98-10.04) x10^3/uL RBC 4.19 (3.93-5.22) x10^6/uL Hgb 13.0 (11.2-15.7) g/dL Hct 37.3 (34.1-44.9) % MCV 89.0 (79.4-94.8) fL MCH 31.0 (25.6-32.2) pg MCHC 34.9 (32.2-35.5) g/dL RDW 11.7 (11.7-14.4) % Plt Count 354 (182-369) x10^3/uL MPV 10.7 (9.4-12.3) fL Gran % 63.4 (34.0-71.1) % Immature Gran % (Auto) 0.3 (0.001-0.429) % Nucleat RBC Rel Count 0.0 (0.00-0.2) % Eos # (Auto) 0.01 L (0.04-0.36) x10^3/uL Immature Gran # (Auto) 0.03 (0.001-0.031) x10^3u/L Absolute Lymphs (auto) 2.93 (1.18-3.74) x10^3/uL Absolute Monos (auto) 0.63 (0.24-0.86) x10^3/uL Absolute Nucleated RBC 0.00 (0.00-0.012) x10^3u/L Lymphocytes % 29.6 (19.3-51.7) % Monocytes % 6.4 (4.7-12.5) % Eosinophils % 0.1 L (0.7-5.8) % Basophils % 0.2 (0.1-1.2) % Absolute Granulocytes 6.28 H (1.56-6.13) x10^3/uL Basophils # 0.02 (0.01-0.08) x10^3/uL Sodium 134 L (135-145) mmol/L Potassium 3.8 (3.5-5.1) mmol/L Chloride 103 (98-107) mmol/L Carbon Dioxide 23 (22-30) mmol/L Anion Gap 12.5 (5-15) MEQ/L BUN 10 (7-17) mg/dL Creatinine 0.80 (0.52-1.04) mg/dL Estimated GFR 102.2 ML/MIN Glucose 103 (74-106) mg/dL Calcium 9.3 (8.4-10.2) mg/dL Total Bilirubin 0.60 (0.2-1.3) mg/dL AST 33 (14-36) U/L ALT 36 H (0-35) U/L Alkaline Phosphatase 89 (38-126) U/L Troponin I < 0.012 (0.000-0.033) ng/mL Serum Total Protein 8.1 (6.3-8.2) g/dL Albumin 4.6 (3.5-5.0) g/dL - Progress Progress Note: 09/10/25 20:49 -year-old female presents with 3 weeks of unresolved chest discomfort. Reports the pain is worse when she moves around. Does not sound exertional in nature but worse with range of motion and any activity. Resolves lying flat. Reports some burning in her throat. Has been on omeprazole and Lexapro but still continues to have symptoms and nightly. Is asymptomatic on ER arrival. EKG independently reviewed sinus rhythm without ST or T wave abnormality. Workup CBC chemistry troponin chest x-ray were reviewed and were unremarkable. 09/10/25 21:14 cxr no acute abn seen 09/10/25 21:58 Including labs and troponin were unremarkable. Symptoms for 3 weeks. Will continue PPI and Lexapro and follow-up with provider. - Departure Clinical Impression: Chest pain Condition: Good Critical Care Time: No Referrals: MISHEL SÁNCHEZ MD [Primary Care Provider, [facility]] - Follow up/PCP as directed Instructions: Chest Pain (DC) Additional Instructions: X-ray unremarkable. Continue home meds. Follow-up provider as needed. Return for worsening symptoms or concerns
[2025-09-10 21:08] LABS: BASOPHIL % 0.2 % (0.1-1.2); Basophil (Absolute #) 0.02 x10^3/uL (0.01-0.08); Eosinophil (Absolute #) 0.01 x10^3/uL (0.04-0.36); Hematocrit 37.3 % (34.1-44.9); Hemoglobin 13.0 g/dL (11.2-15.7); IMMATURE GRAN # 0.03 x10^3u/L (0.001-0.031); IMMATURE GRAN % 0.3 % (0.001-0.429); Lymphocyte (Absolute #) 2.93 x10^3/uL (1.18-3.74); Mean Corpuscular Hemoglobin 31.0 pg (25.6-32.2); Mean Corpuscular Hgb Concent. 34.9 g/dL (32.2-35.5); Monocyte (Absolute #) 0.63 x10^3/uL (0.24-0.86); NUCLEATED RBC # 0.00 x10^3u/L (0.00-0.012); NUCLEATED RBC % 0.0 % (0.00-0.2); Platelet Count 354 x10^3/uL (182-369); Red Blood Count 4.19 x10^6/uL (3.93-5.22); White Blood Count 9.9 x10^3/uL (3.98-10.04)
[2025-09-10 21:42] LABS: Calcium 9.3 mg/dL (8.4-10.2); Carbon Dioxide 23.0 mmol/L (22-30); Creatinine 1 0.8 mg/dL (0.52-1.04); EST GLOMERULAR FILTRATION RATE 102.2 ML/MIN; Glucose 103.0 mg/dL (74-106); Potassium 3.8 mmol/L (3.5-5.1); SGOT/AST 33.0 U/L (14-36); SGPT/ALT 36.0 U/L (0-35); Total Protein 8.1 g/dL (6.3-8.2)
[2025-09-10 22:12] VITALS: BP 114/72; PULSE 58; RESP 16
--- NOTE | 2025-09-11 08:53 | XRAY ---
Indication: Chest pain. Comparison: April 08, 2025 Portable chest again demonstrates normal heart and lungs. Bony thorax intact again with minimal dextroscoliosis. No new/acute findings.
== END 2025-09-10 22:25 | disposition home or self-care (01) ==
LOC: ED 20:33
DX: R07.9 Chest pain, unspecified (principal); Z79.899 Other long term (current) drug therapy